=== PATIENT | male | born 1940 | race Caucasian/White ===

== ENCOUNTER 2017-07-26 14:45 | Day surgery (SDC) | payer MEDICARE ==
[~2017-07-26 14:45] MED LIST: ACET325; ACET500 PO; ALBU3IS INH; ALBU90OI6 INH; ASPI325; ASPI81CH PO; ASPI81EC PO; BUDE6HFA INH; Bactrim Ds Tab1 EACH PO; CALCAVITD PO; CALCAVITDA PO; CALCIUM 600 +1 EA11 PO; CHOL10002 PO; CHOLESTEROL MED PO; CIPR500 PO; Cipro500 MG PO; Complete Senio1 EACH PO; ENOX40I SC; EQUATE ALLERGY RELIE PO; FINA5 PO; HYDACE10B PO; HYDCHL12.5 PO; HYDR1TAB94; HYDR1TAB94 PO; HYDROMORPHO IV; Keflex500 MG PO; LEG CRAMPS PO; MULVITMIND PO; Micro-K10 MEQ PO; Norco 5-325 Ta1 EACH PO; POTCHL10ER PO; Prednisone20 MG PO; SIMV40; Simvastatin20 MG PO; TAMS.4ER PO; TORS10 PO; VANCOMYCIN1.5 GM/252 IV; Ventolin Soln3 ML; Zithromax250 MG PO; [UNRECOGNIZED DRUG - OTHER]; [UNRECOGNIZED DRUG - REMARK] PO
[2018-07-07] MEDS ORDERED: CIPR250 PO (09:26)
[2018-07-07] MEDS ORDERED: Gentak3.5 GM TOP (09:26)
[2018-07-07] MEDS ORDERED: CLOB.05TO TOP (11:07)
[2018-07-07] MEDS ORDERED: MUPI1NAS (11:08)
[2018-07-09] MEDS ORDERED: ALBU2.5V5 INH (12:58)
[2018-07-09] MEDS ORDERED: TIOT18 INH (12:58)
[2018-07-09] MEDS ORDERED: CEPH500 PO (12:59)
[2018-07-09] MEDS ORDERED: BUDE6HFA INH (12:59)
[2018-07-09] MEDS ORDERED: CIPR500 PO (13:00)
[2018-07-09] MEDS ORDERED: Clotrimazole15 GM TOP (13:01)
== END 2017-07-26 23:33 | disposition home or self-care (01) ==
LOC: WOUND 14:45
PROC: 2W1QX6Z Compression of Right Lower Leg using Pressure Dressing (ICD-10-PCS; principal; 2017-07-26)
DX: Z48.00 Encounter for change or removal of nonsurgical wound dressing (principal); L97.812 Non-pressure chronic ulcer of other part of right lower leg with fat layer exposed; I87.311 Chronic venous hypertension (idiopathic) with ulcer of right lower extremity; I87.2 Venous insufficiency (chronic) (peripheral); M19.90 Unspecified osteoarthritis, unspecified site; J44.9 Chronic obstructive pulmonary disease, unspecified
CPT/HCPCS: G0463

== ENCOUNTER 2017-08-02 00:40 | Day surgery (SDC) | payer MEDICARE ==
[2018-07-07] MEDS ORDERED: Gentak3.5 GM TOP (09:26)
[2018-07-07] MEDS ORDERED: CIPR250 PO (09:26)
[2018-07-07] MEDS ORDERED: CLOB.05TO TOP (11:07)
[2018-07-07] MEDS ORDERED: MUPI1NAS (11:08)
[2018-07-09] MEDS ORDERED: TIOT18 INH (12:58)
[2018-07-09] MEDS ORDERED: ALBU2.5V5 INH (12:58)
[2018-07-09] MEDS ORDERED: CEPH500 PO (12:59)
[2018-07-09] MEDS ORDERED: BUDE6HFA INH (12:59)
[2018-07-09] MEDS ORDERED: CIPR500 PO (13:00)
[2018-07-09] MEDS ORDERED: Clotrimazole15 GM TOP (13:01)
== END 2017-08-02 17:08 | disposition home or self-care (01) ==
LOC: WOUND 00:40
DX: Z48.00 Encounter for change or removal of nonsurgical wound dressing (principal); L97.812 Non-pressure chronic ulcer of other part of right lower leg with fat layer exposed; I87.311 Chronic venous hypertension (idiopathic) with ulcer of right lower extremity; I87.2 Venous insufficiency (chronic) (peripheral); Z96.641 Presence of right artificial hip joint

== ENCOUNTER 2017-08-08 15:00 | Day surgery (SDC) | payer MEDICARE ==
[2018-07-07] MEDS ORDERED: Gentak3.5 GM TOP (09:26)
[2018-07-07] MEDS ORDERED: CIPR250 PO (09:26)
[2018-07-07] MEDS ORDERED: CLOB.05TO TOP (11:07)
[2018-07-07] MEDS ORDERED: MUPI1NAS (11:08)
[2018-07-09] MEDS ORDERED: TIOT18 INH (12:58)
[2018-07-09] MEDS ORDERED: ALBU2.5V5 INH (12:58)
[2018-07-09] MEDS ORDERED: BUDE6HFA INH (12:59)
[2018-07-09] MEDS ORDERED: CEPH500 PO (12:59)
[2018-07-09] MEDS ORDERED: CIPR500 PO (13:00)
[2018-07-09] MEDS ORDERED: Clotrimazole15 GM TOP (13:01)
== END 2017-08-08 16:55 | disposition home or self-care (01) ==
LOC: WOUND 15:00
PROC: 2W1QX6Z Compression of Right Lower Leg using Pressure Dressing (ICD-10-PCS; principal; 2017-08-08)
DX: Z48.00 Encounter for change or removal of nonsurgical wound dressing (principal); L97.812 Non-pressure chronic ulcer of other part of right lower leg with fat layer exposed; I87.311 Chronic venous hypertension (idiopathic) with ulcer of right lower extremity; I87.2 Venous insufficiency (chronic) (peripheral); J44.9 Chronic obstructive pulmonary disease, unspecified
CPT/HCPCS: G0463

== ENCOUNTER 2017-08-16 14:39 | Day surgery (SDC) | payer MEDICARE ==
[2018-07-07] MEDS ORDERED: CIPR250 PO (09:26)
[2018-07-07] MEDS ORDERED: Gentak3.5 GM TOP (09:26)
[2018-07-07] MEDS ORDERED: CLOB.05TO TOP (11:07)
[2018-07-07] MEDS ORDERED: MUPI1NAS (11:08)
[2018-07-09] MEDS ORDERED: ALBU2.5V5 INH (12:58)
[2018-07-09] MEDS ORDERED: TIOT18 INH (12:58)
[2018-07-09] MEDS ORDERED: BUDE6HFA INH (12:59)
[2018-07-09] MEDS ORDERED: CEPH500 PO (12:59)
[2018-07-09] MEDS ORDERED: CIPR500 PO (13:00)
[2018-07-09] MEDS ORDERED: Clotrimazole15 GM TOP (13:01)
== END 2017-08-16 17:17 | disposition home or self-care (01) ==
LOC: WOUND 14:39
PROC: 2W1QX6Z Compression of Right Lower Leg using Pressure Dressing (ICD-10-PCS; principal; 2017-08-16)
DX: I87.311 Chronic venous hypertension (idiopathic) with ulcer of right lower extremity (principal); I87.2 Venous insufficiency (chronic) (peripheral); F03.90 Unspecified dementia, unspecified severity, without behavioral disturbance, psychotic disturbance, mood disturbance, and anxiety

== ENCOUNTER 2017-08-22 14:54 | Day surgery (SDC) | payer MEDICARE ==
[2018-07-07] MEDS ORDERED: CIPR250 PO (09:26)
[2018-07-07] MEDS ORDERED: Gentak3.5 GM TOP (09:26)
[2018-07-07] MEDS ORDERED: CLOB.05TO TOP (11:07)
[2018-07-07] MEDS ORDERED: MUPI1NAS (11:08)
[2018-07-09] MEDS ORDERED: TIOT18 INH (12:58)
[2018-07-09] MEDS ORDERED: ALBU2.5V5 INH (12:58)
[2018-07-09] MEDS ORDERED: CEPH500 PO (12:59)
[2018-07-09] MEDS ORDERED: BUDE6HFA INH (12:59)
[2018-07-09] MEDS ORDERED: CIPR500 PO (13:00)
[2018-07-09] MEDS ORDERED: Clotrimazole15 GM TOP (13:01)
== END 2017-08-22 23:20 | disposition home or self-care (01) ==
LOC: WOUND 14:54
DX: Z48.00 Encounter for change or removal of nonsurgical wound dressing (principal); L97.812 Non-pressure chronic ulcer of other part of right lower leg with fat layer exposed; I87.311 Chronic venous hypertension (idiopathic) with ulcer of right lower extremity; I87.2 Venous insufficiency (chronic) (peripheral); M20.5X1 Other deformities of toe(s) (acquired), right foot

== ENCOUNTER 2017-08-30 00:50 | Day surgery (SDC) | payer MEDICARE ==
[2018-07-07] MEDS ORDERED: Gentak3.5 GM TOP (09:26)
[2018-07-07] MEDS ORDERED: CIPR250 PO (09:26)
[2018-07-07] MEDS ORDERED: CLOB.05TO TOP (11:07)
[2018-07-07] MEDS ORDERED: MUPI1NAS (11:08)
[2018-07-09] MEDS ORDERED: ALBU2.5V5 INH (12:58)
[2018-07-09] MEDS ORDERED: TIOT18 INH (12:58)
[2018-07-09] MEDS ORDERED: BUDE6HFA INH (12:59)
[2018-07-09] MEDS ORDERED: CEPH500 PO (12:59)
[2018-07-09] MEDS ORDERED: CIPR500 PO (13:00)
[2018-07-09] MEDS ORDERED: Clotrimazole15 GM TOP (13:01)
== END 2017-08-30 23:20 | disposition home or self-care (01) ==
LOC: WOUND 00:50
PROC: 0HBKXZZ Excision of Right Lower Leg Skin, External Approach (ICD-10-PCS; principal; 2017-08-30)
DX: Z48.00 Encounter for change or removal of nonsurgical wound dressing (principal); I87.311 Chronic venous hypertension (idiopathic) with ulcer of right lower extremity; I87.2 Venous insufficiency (chronic) (peripheral); L97.212 Non-pressure chronic ulcer of right calf with fat layer exposed; F03.90 Unspecified dementia, unspecified severity, without behavioral disturbance, psychotic disturbance, mood disturbance, and anxiety
CPT/HCPCS: G0463

== ENCOUNTER 2017-09-06 10:00 | Day surgery (SDC) | payer MEDICARE ==
[2018-07-07] MEDS ORDERED: CIPR250 PO (09:26)
[2018-07-07] MEDS ORDERED: Gentak3.5 GM TOP (09:26)
[2018-07-07] MEDS ORDERED: CLOB.05TO TOP (11:07)
[2018-07-07] MEDS ORDERED: MUPI1NAS (11:08)
[2018-07-09] MEDS ORDERED: ALBU2.5V5 INH (12:58)
[2018-07-09] MEDS ORDERED: TIOT18 INH (12:58)
[2018-07-09] MEDS ORDERED: BUDE6HFA INH (12:59)
[2018-07-09] MEDS ORDERED: CEPH500 PO (12:59)
[2018-07-09] MEDS ORDERED: CIPR500 PO (13:00)
[2018-07-09] MEDS ORDERED: Clotrimazole15 GM TOP (13:01)
== END 2017-09-06 10:47 | disposition home or self-care (01) ==
LOC: WOUND 10:00
PROC: 2W1QX6Z Compression of Right Lower Leg using Pressure Dressing (ICD-10-PCS; principal; 2017-09-06)
DX: Z48.00 Encounter for change or removal of nonsurgical wound dressing (principal); L97.812 Non-pressure chronic ulcer of other part of right lower leg with fat layer exposed; I87.311 Chronic venous hypertension (idiopathic) with ulcer of right lower extremity; I87.2 Venous insufficiency (chronic) (peripheral)

== ENCOUNTER 2017-09-13 00:42 | Day surgery (SDC) | payer MEDICARE ==
[~2017-09-13 00:42] MED LIST changes: -CALCIUM 600 +1 EA11 PO; -Complete Senio1 EACH PO; +MULVIT PO
== END 2017-09-13 22:00 | disposition home or self-care (01) ==
LOC: WOUND 00:42
DX: Z48.00 Encounter for change or removal of nonsurgical wound dressing (principal); L97.812 Non-pressure chronic ulcer of other part of right lower leg with fat layer exposed; I87.311 Chronic venous hypertension (idiopathic) with ulcer of right lower extremity; I87.2 Venous insufficiency (chronic) (peripheral); J44.9 Chronic obstructive pulmonary disease, unspecified; F03.90 Unspecified dementia, unspecified severity, without behavioral disturbance, psychotic disturbance, mood disturbance, and anxiety
CPT/HCPCS: G0463

== ENCOUNTER 2017-09-20 00:57 | Day surgery (SDC) | payer MEDICARE ==
[~2017-09-20 00:57] MED LIST changes: +CALCIUM 600 +1 EA11 PO; +Complete Senio1 EACH PO; -MULVIT PO
[2018-07-07] MEDS ORDERED: CIPR250 PO (09:26)
[2018-07-07] MEDS ORDERED: Gentak3.5 GM TOP (09:26)
[2018-07-07] MEDS ORDERED: CLOB.05TO TOP (11:07)
[2018-07-07] MEDS ORDERED: MUPI1NAS (11:08)
[2018-07-09] MEDS ORDERED: ALBU2.5V5 INH (12:58)
[2018-07-09] MEDS ORDERED: TIOT18 INH (12:58)
[2018-07-09] MEDS ORDERED: BUDE6HFA INH (12:59)
[2018-07-09] MEDS ORDERED: CEPH500 PO (12:59)
[2018-07-09] MEDS ORDERED: CIPR500 PO (13:00)
[2018-07-09] MEDS ORDERED: Clotrimazole15 GM TOP (13:01)
== END 2017-09-20 23:19 | disposition home or self-care (01) ==
LOC: WOUND 00:57
PROC: 2W1QX6Z Compression of Right Lower Leg using Pressure Dressing (ICD-10-PCS; principal; 2017-09-20)
DX: Z48.00 Encounter for change or removal of nonsurgical wound dressing (principal); L97.812 Non-pressure chronic ulcer of other part of right lower leg with fat layer exposed; I87.311 Chronic venous hypertension (idiopathic) with ulcer of right lower extremity; I87.2 Venous insufficiency (chronic) (peripheral); J44.9 Chronic obstructive pulmonary disease, unspecified; Z99.81 Dependence on supplemental oxygen; F03.90 Unspecified dementia, unspecified severity, without behavioral disturbance, psychotic disturbance, mood disturbance, and anxiety
CPT/HCPCS: G0463

== ENCOUNTER 2017-09-27 00:13 | Day surgery (SDC) | payer MEDICARE ==
[2018-07-07] MEDS ORDERED: CIPR250 PO (09:26)
[2018-07-07] MEDS ORDERED: Gentak3.5 GM TOP (09:26)
[2018-07-07] MEDS ORDERED: CLOB.05TO TOP (11:07)
[2018-07-07] MEDS ORDERED: MUPI1NAS (11:08)
[2018-07-09] MEDS ORDERED: ALBU2.5V5 INH (12:58)
[2018-07-09] MEDS ORDERED: TIOT18 INH (12:58)
[2018-07-09] MEDS ORDERED: CEPH500 PO (12:59)
[2018-07-09] MEDS ORDERED: BUDE6HFA INH (12:59)
[2018-07-09] MEDS ORDERED: CIPR500 PO (13:00)
[2018-07-09] MEDS ORDERED: Clotrimazole15 GM TOP (13:01)
== END 2017-09-27 22:51 | disposition home or self-care (01) ==
LOC: WOUND 00:13
PROC: 2W1QX6Z Compression of Right Lower Leg using Pressure Dressing (ICD-10-PCS; principal; 2017-09-27)
PROC: 0HBKXZZ Excision of Right Lower Leg Skin, External Approach (ICD-10-PCS; principal; 2017-09-27)
DX: I87.311 Chronic venous hypertension (idiopathic) with ulcer of right lower extremity (principal); L97.812 Non-pressure chronic ulcer of other part of right lower leg with fat layer exposed; I87.2 Venous insufficiency (chronic) (peripheral); J44.9 Chronic obstructive pulmonary disease, unspecified; Z99.81 Dependence on supplemental oxygen
CPT/HCPCS: G0463

== ENCOUNTER 2017-10-11 14:53 | Day surgery (SDC) | payer MEDICARE ==
[2018-07-07] MEDS ORDERED: CIPR250 PO (09:26)
[2018-07-07] MEDS ORDERED: Gentak3.5 GM TOP (09:26)
[2018-07-07] MEDS ORDERED: CLOB.05TO TOP (11:07)
[2018-07-07] MEDS ORDERED: MUPI1NAS (11:08)
[2018-07-09] MEDS ORDERED: TIOT18 INH (12:58)
[2018-07-09] MEDS ORDERED: ALBU2.5V5 INH (12:58)
[2018-07-09] MEDS ORDERED: BUDE6HFA INH (12:59)
[2018-07-09] MEDS ORDERED: CEPH500 PO (12:59)
[2018-07-09] MEDS ORDERED: CIPR500 PO (13:00)
[2018-07-09] MEDS ORDERED: Clotrimazole15 GM TOP (13:01)
== END 2017-10-11 17:03 | disposition home or self-care (01) ==
LOC: WOUND 14:53
PROC: 2W1QX6Z Compression of Right Lower Leg using Pressure Dressing (ICD-10-PCS; principal; 2017-10-11)
PROC: 0HBKXZZ Excision of Right Lower Leg Skin, External Approach (ICD-10-PCS; principal; 2017-10-11)
DX: I87.311 Chronic venous hypertension (idiopathic) with ulcer of right lower extremity (principal); L97.812 Non-pressure chronic ulcer of other part of right lower leg with fat layer exposed; I87.2 Venous insufficiency (chronic) (peripheral); J44.9 Chronic obstructive pulmonary disease, unspecified

== ENCOUNTER 2017-10-18 14:00 | Day surgery (SDC) | payer MEDICARE ==
[2018-07-07] MEDS ORDERED: CIPR250 PO (09:26)
[2018-07-07] MEDS ORDERED: Gentak3.5 GM TOP (09:26)
[2018-07-07] MEDS ORDERED: CLOB.05TO TOP (11:07)
[2018-07-07] MEDS ORDERED: MUPI1NAS (11:08)
[2018-07-09] MEDS ORDERED: ALBU2.5V5 INH (12:58)
[2018-07-09] MEDS ORDERED: TIOT18 INH (12:58)
[2018-07-09] MEDS ORDERED: CEPH500 PO (12:59)
[2018-07-09] MEDS ORDERED: BUDE6HFA INH (12:59)
[2018-07-09] MEDS ORDERED: CIPR500 PO (13:00)
[2018-07-09] MEDS ORDERED: Clotrimazole15 GM TOP (13:01)
== END 2017-10-18 16:00 | disposition home or self-care (01) ==
LOC: WOUND 14:00
PROC: 2W1QX6Z Compression of Right Lower Leg using Pressure Dressing (ICD-10-PCS; principal; 2017-10-18)
DX: Z48.00 Encounter for change or removal of nonsurgical wound dressing (principal); I87.311 Chronic venous hypertension (idiopathic) with ulcer of right lower extremity; L97.212 Non-pressure chronic ulcer of right calf with fat layer exposed; I87.2 Venous insufficiency (chronic) (peripheral); J44.9 Chronic obstructive pulmonary disease, unspecified; M19.90 Unspecified osteoarthritis, unspecified site; F03.90 Unspecified dementia, unspecified severity, without behavioral disturbance, psychotic disturbance, mood disturbance, and anxiety; Z99.81 Dependence on supplemental oxygen
CPT/HCPCS: G0463

== ENCOUNTER 2017-11-01 00:15 | Day surgery (SDC) | payer MEDICARE ==
[~2017-11-01 00:15] MED LIST changes: -CALCIUM 600 +1 EA11 PO; -Complete Senio1 EACH PO; +MULVIT PO
== END 2017-11-01 22:48 | disposition home or self-care (01) ==
LOC: WOUND 00:15
PROC: 2W1QX6Z Compression of Right Lower Leg using Pressure Dressing (ICD-10-PCS; principal; 2017-11-01)
DX: L97.812 Non-pressure chronic ulcer of other part of right lower leg with fat layer exposed (principal); I87.2 Venous insufficiency (chronic) (peripheral); J44.9 Chronic obstructive pulmonary disease, unspecified
CPT/HCPCS: G0463

== ENCOUNTER 2017-11-14 00:17 | Day surgery (SDC) | payer MEDICARE | END 2017-11-14 22:38 | disposition home or self-care (01) | LOC: WOUND 00:17 | PROC: 0HBKXZZ Excision of Right Lower Leg Skin, External Approach (ICD-10-PCS; principal; 2017-11-14) | PROC: 2W1QX6Z Compression of Right Lower Leg using Pressure Dressing (ICD-10-PCS; principal; 2017-11-14) | DX: L97.212 Non-pressure chronic ulcer of right calf with fat layer exposed (principal); L97.812 Non-pressure chronic ulcer of other part of right lower leg with fat layer exposed; I87.311 Chronic venous hypertension (idiopathic) with ulcer of right lower extremity; I87.2 Venous insufficiency (chronic) (peripheral); J45.909 Unspecified asthma, uncomplicated; Z99.81 Dependence on supplemental oxygen ==

== ENCOUNTER 2017-11-22 14:15 | Day surgery (SDC) | payer MEDICARE | END 2017-11-22 16:29 | disposition home or self-care (01) | LOC: WOUND 14:15 | PROC: 0HBKXZZ Excision of Right Lower Leg Skin, External Approach (ICD-10-PCS; principal; 2017-11-22) | DX: L97.812 Non-pressure chronic ulcer of other part of right lower leg with fat layer exposed (principal); I87.2 Venous insufficiency (chronic) (peripheral) ==

== ENCOUNTER 2017-11-28 14:55 | Day surgery (SDC) | payer MEDICARE | END 2017-11-28 23:16 | disposition home or self-care (01) | LOC: WOUND 14:55 | PROC: 0HBKXZZ Excision of Right Lower Leg Skin, External Approach (ICD-10-PCS; principal; 2017-11-28) | PROC: 2W1RX6Z Compression of Left Lower Leg using Pressure Dressing (ICD-10-PCS; principal; 2017-11-28) | DX: L97.812 Non-pressure chronic ulcer of other part of right lower leg with fat layer exposed (principal); I87.2 Venous insufficiency (chronic) (peripheral); J44.9 Chronic obstructive pulmonary disease, unspecified | CPT/HCPCS: G0463 ==

== ENCOUNTER 2017-12-05 00:15 | Day surgery (SDC) | payer MEDICARE | END 2017-12-05 23:00 | disposition home or self-care (01) | LOC: WOUND 00:15 | PROC: 2W1QX6Z Compression of Right Lower Leg using Pressure Dressing (ICD-10-PCS; principal; 2017-12-05) | PROC: 0HBKXZZ Excision of Right Lower Leg Skin, External Approach (ICD-10-PCS; principal; 2017-12-05) | DX: L97.812 Non-pressure chronic ulcer of other part of right lower leg with fat layer exposed (principal); S81.801D Unspecified open wound, right lower leg, subsequent encounter; I87.2 Venous insufficiency (chronic) (peripheral) ==

== ENCOUNTER 2017-12-12 14:59 | Day surgery (SDC) | payer MEDICARE | END 2017-12-12 23:11 | disposition home or self-care (01) | LOC: WOUND 14:59 | DX: L97.812 Non-pressure chronic ulcer of other part of right lower leg with fat layer exposed (principal); S81.801A Unspecified open wound, right lower leg, initial encounter; I87.2 Venous insufficiency (chronic) (peripheral); J44.9 Chronic obstructive pulmonary disease, unspecified; Z99.81 Dependence on supplemental oxygen | CPT/HCPCS: G0463 ==

== ENCOUNTER 2017-12-19 15:03 | Day surgery (SDC) | payer MEDICARE | END 2017-12-19 16:28 | disposition home or self-care (01) | LOC: WOUND 15:03 | PROC: 2W1QX6Z Compression of Right Lower Leg using Pressure Dressing (ICD-10-PCS; principal; 2017-12-19) | DX: L97.812 Non-pressure chronic ulcer of other part of right lower leg with fat layer exposed (principal); S81.801A Unspecified open wound, right lower leg, initial encounter; I87.2 Venous insufficiency (chronic) (peripheral); J44.9 Chronic obstructive pulmonary disease, unspecified; Z99.81 Dependence on supplemental oxygen | CPT/HCPCS: G0463 ==

== ENCOUNTER 2017-12-26 14:59 | Day surgery (SDC) | payer MEDICARE | END 2017-12-26 22:59 | disposition home or self-care (01) | LOC: WOUND 14:59 | PROC: 2W1QX6Z Compression of Right Lower Leg using Pressure Dressing (ICD-10-PCS; principal; 2017-12-26) | DX: L97.218 Non-pressure chronic ulcer of right calf with other specified severity (principal); L97.812 Non-pressure chronic ulcer of other part of right lower leg with fat layer exposed; S81.801A Unspecified open wound, right lower leg, initial encounter | CPT/HCPCS: G0463 ==

== ENCOUNTER 2018-01-09 15:07 | Day surgery (SDC) | payer MEDICARE | END 2018-01-09 16:45 | disposition home or self-care (01) | LOC: WOUND 15:07 | DX: L97.812 Non-pressure chronic ulcer of other part of right lower leg with fat layer exposed (principal); S81.801A Unspecified open wound, right lower leg, initial encounter; I87.311 Chronic venous hypertension (idiopathic) with ulcer of right lower extremity | CPT/HCPCS: G0463 ==

== ENCOUNTER 2018-01-17 15:15 | Day surgery (SDC) | payer MEDICARE | END 2018-01-17 16:36 | disposition home or self-care (01) | LOC: WOUND 15:15 | DX: Z48.00 Encounter for change or removal of nonsurgical wound dressing (principal); L97.812 Non-pressure chronic ulcer of other part of right lower leg with fat layer exposed; S81.801A Unspecified open wound, right lower leg, initial encounter; I87.311 Chronic venous hypertension (idiopathic) with ulcer of right lower extremity; I87.2 Venous insufficiency (chronic) (peripheral) | CPT/HCPCS: G0463 ==

== ENCOUNTER 2018-04-21 04:45 | Observation (INO) | payer MEDICARE ==
[~2018-04-21] VITALS: Ht 167.6 cm; Wt 100.1 kg
[2018-04-21 05:39] LABS: BASOPHILS ABSOLUTE AUTO 0.03 K/mm3 (0.00-0.23); BASOPHILS PERCENT AUTO 1 % (0-2); EOSINOPHILS ABSOLUTE AUTO 0.51 K/mm3 (0.00-0.68); EOSINOPHILS PERCENT AUTO 11 % (0-6); Hematocrit 37.8 % (37.0-53.0); Hemoglobin 11.6 g/dL (13.5-17.5); IMMATURE GRAN ABSOLUTE AUTO 0.02 K/mm3 (0.00-0.10); IMMATURE GRAN PERCENT AUTO 0 % (0-1); LYMPHOCYTES ABSOLUTE AUTO 0.82 K/mm3 (0.84-5.20); LYMPHOCYTES PERCENT AUTO 17 % (21-46); MONOCYTES ABSOLUTE AUTO 0.46 K/mm3 (0.16-1.47); MONOCYTES PERCENT AUTO 10 % (4-13); Mean Corpuscular HGB 27.6 pg (26.0-34.0); Mean Corpuscular HGB Conc 30.7 g/dL (31.5-36.5); Mean Corpuscular Volume 90 fL (80-100); Mean Platelet Volume 10.2 fL (9.1-12.4); NEUTROPHILS ABSOLUTE AUTO 3.02 K/mm3 (1.96-9.15); NEUTROPHILS PERCENT AUTO 62 % (41-73); Platelet Count 203 K/mm3 (150-400); RDW Coefficient Variation 15.3 % (11.7-14.2); RDW Standard Deviation 50.4 fL (35.1-46.3); Red Blood Cell Count 4.21 M/mm3 (4.30-5.90); White Blood Cell Count 4.86 K/mm3 (4.00-11.30)
[2018-04-21 05:58] LABS: Alanine Aminotransfer (ALT/SGP 34 U/L (12-78); Albumin/Globulin Ratio 0.7 (0.8-1.8); Alk Phos 148 U/L (50-136); Anion Gap 6 mmol/L (6-16); Aspartate Aminotrans (AST/SGOT 23 U/L (12-37); Bilirubin, Total 0.4 mg/dL (0.1-1.0); Blood Urea Nitrogen 14 mg/dL (8-24); Bun/Creatinine Ratio 12.2 (12.0-20.0); CO2, Blood 27 mmol/L (21-32); Calcium, Blood 8.3 mg/dL (8.5-10.1); Chloride, Blood 111 mmol/L (98-108); Creatinine, Blood 1.15 mg/dL (0.60-1.20); Globulin, Blood 4.2 g/dL (2.2-4.0); Glomerular Filtration Rate >60 (60-); Glucose, Blood 109 mg/dL (70-99); Potassium, Blood 3.9 mmol/L (3.5-5.5); Sodium, Blood 144 mmol/L (136-145); Total Protein, Blood 7.2 g/dL (6.4-8.2)
[2018-04-21] MEDS ORDERED: TORSE20 PO (15:06)
[2018-04-21] MEDS ORDERED: ASPI325 PO (15:09)
[2018-04-22 04:56] LABS: BASOPHILS ABSOLUTE AUTO 0.01 K/mm3 (0.00-0.23); BASOPHILS PERCENT AUTO 0 % (0-2); EOSINOPHILS PERCENT AUTO 0 % (0-6); Hematocrit 38.4 % (37.0-53.0); Hemoglobin 11.7 g/dL (13.5-17.5); Mean Corpuscular HGB 27.1 pg (26.0-34.0); Mean Corpuscular HGB Conc 30.5 g/dL (31.5-36.5); Mean Corpuscular Volume 89 fL (80-100); Mean Platelet Volume 10.7 fL (9.1-12.4); Platelet Count 218 K/mm3 (150-400); RDW Coefficient Variation 15.3 % (11.7-14.2); RDW Standard Deviation 50.1 fL (35.1-46.3); Red Blood Cell Count 4.32 M/mm3 (4.30-5.90); White Blood Cell Count 6.76 K/mm3 (4.00-11.30)
[2018-04-22 05:03] LABS: IMMATURE GRAN ABSOLUTE AUTO 0.02 K/mm3 (0.00-0.10); IMMATURE GRAN PERCENT AUTO 0 % (0-1); LYMPHOCYTES ABSOLUTE AUTO 0.34 K/mm3 (0.84-5.20); LYMPHOCYTES PERCENT AUTO 5 % (21-46); MONOCYTES ABSOLUTE AUTO 0.03 K/mm3 (0.16-1.47); MONOCYTES PERCENT AUTO 0 % (4-13); NEUTROPHILS ABSOLUTE AUTO 6.36 K/mm3 (1.96-9.15); NEUTROPHILS PERCENT AUTO 94 % (41-73)
[2018-04-22 05:19] LABS: Alanine Aminotransfer (ALT/SGP 35 U/L (12-78); Albumin, Blood 3.1 g/dL (3.4-5.0); Albumin/Globulin Ratio 0.7 (0.8-1.8); Alk Phos 149 U/L (50-136); Anion Gap 10 mmol/L (6-16); Aspartate Aminotrans (AST/SGOT 15 U/L (12-37); Bilirubin, Total 0.4 mg/dL (0.1-1.0); Blood Urea Nitrogen 20 mg/dL (8-24); Bun/Creatinine Ratio 16.1 (12.0-20.0); CO2, Blood 22 mmol/L (21-32); Calcium, Blood 8.4 mg/dL (8.5-10.1); Chloride, Blood 109 mmol/L (98-108); Creatinine, Blood 1.24 mg/dL (0.60-1.20); Globulin, Blood 4.6 g/dL (2.2-4.0); Glomerular Filtration Rate >60 (60-); Glucose, Blood 240 mg/dL (70-99); Potassium, Blood 4.3 mmol/L (3.5-5.5); Sodium, Blood 141 mmol/L (136-145); Total Protein, Blood 7.7 g/dL (6.4-8.2)
[2018-04-22] MEDS ORDERED: DOXY100 PO (10:24)
[2018-04-22] MEDS ORDERED: PRED20 PO (10:28)
== END 2018-04-22 11:16 | disposition home or self-care (01) ==
LOC: DELPENDDIS → ER 04:45 → MEDS 04:46 → ENPENDDIS 04-22 07:58 → MEDS 04-22 11:16
PROVIDERS: Emergency Medicine; Student in an Organized Health Care Education/Training Program
DX: G93.1 Anoxic brain damage, not elsewhere classified (principal); J44.1 Chronic obstructive pulmonary disease with (acute) exacerbation; G47.33 Obstructive sleep apnea (adult) (pediatric); J18.9 Pneumonia, unspecified organism; I83.009 Varicose veins of unspecified lower extremity with ulcer of unspecified site; L97.909 Non-pressure chronic ulcer of unspecified part of unspecified lower leg with unspecified severity; N40.0 Benign prostatic hyperplasia without lower urinary tract symptoms; Z79.82 Long term (current) use of aspirin; Z79.899 Other long term (current) drug therapy; Z87.891 Personal history of nicotine dependence
CPT/HCPCS: 36415; 70450; 71046; 80053; 84145; 85025; 90686; 93005; 93010; 94640; 94760; 96365; 96367; 96375; 99285-25; G0008; G0378; J0456; J0696; J2930; J7050

== ENCOUNTER 2018-07-18 00:16 | Day surgery (SDC) | payer MEDICARE ==
[~2018-07-18 00:16] MED LIST changes: +ALBU2.5V5 INH; +ASPI325 PO; +CALCIUM 600 +1 EA11 PO; +CEPH500 PO; +CIPR250 PO; +CLOB.05TO TOP; +Clotrimazole15 GM TOP; +Complete Senio1 EACH PO; +DOXY100 PO; +Gentak3.5 GM TOP; -MULVIT PO; +MUPI1NAS; +PRED20 PO; +TIOT18 INH; +TORSE20 PO
== END 2018-07-18 22:47 | disposition home or self-care (01) ==
LOC: WOUND 00:16
DX: L03.115 Cellulitis of right lower limb (principal); L97.812 Non-pressure chronic ulcer of other part of right lower leg with fat layer exposed; S91.104D Unspecified open wound of right lesser toe(s) without damage to nail, subsequent encounter; S91.101D Unspecified open wound of right great toe without damage to nail, subsequent encounter; I87.2 Venous insufficiency (chronic) (peripheral); I70.209 Unspecified atherosclerosis of native arteries of extremities, unspecified extremity

== ENCOUNTER 2018-07-25 13:23 | Day surgery (SDC) | payer MEDICARE | END 2018-07-25 23:06 | disposition home or self-care (01) | LOC: WOUND 13:23 | DX: L97.812 Non-pressure chronic ulcer of other part of right lower leg with fat layer exposed (principal); L97.511 Non-pressure chronic ulcer of other part of right foot limited to breakdown of skin; L03.115 Cellulitis of right lower limb; I87.2 Venous insufficiency (chronic) (peripheral); I70.209 Unspecified atherosclerosis of native arteries of extremities, unspecified extremity ==

== ENCOUNTER 2018-08-08 00:14 | Day surgery (SDC) | payer MEDICARE | END 2018-08-08 22:50 | disposition home or self-care (01) | LOC: WOUND 00:14 | DX: L97.812 Non-pressure chronic ulcer of other part of right lower leg with fat layer exposed (principal); L97.512 Non-pressure chronic ulcer of other part of right foot with fat layer exposed; L97.811 Non-pressure chronic ulcer of other part of right lower leg limited to breakdown of skin; L97.511 Non-pressure chronic ulcer of other part of right foot limited to breakdown of skin; I87.2 Venous insufficiency (chronic) (peripheral); I70.209 Unspecified atherosclerosis of native arteries of extremities, unspecified extremity ==

== ENCOUNTER 2018-08-15 00:58 | Day surgery (SDC) | payer MEDICARE | END 2018-08-15 23:56 | disposition home or self-care (01) | LOC: WOUND 00:58 | PROC: 0HBMXZZ Excision of Right Foot Skin, External Approach (ICD-10-PCS; principal; 2018-08-15) | PROC: 0HBKXZZ Excision of Right Lower Leg Skin, External Approach (ICD-10-PCS; principal; 2018-08-15) | DX: L97.212 Non-pressure chronic ulcer of right calf with fat layer exposed (principal); L03.115 Cellulitis of right lower limb; I87.2 Venous insufficiency (chronic) (peripheral) ==

== ENCOUNTER 2018-08-22 13:45 | Day surgery (SDC) | payer MEDICARE | END 2018-08-22 23:05 | disposition home or self-care (01) | LOC: WOUND 13:45 | DX: L97.812 Non-pressure chronic ulcer of other part of right lower leg with fat layer exposed (principal); L97.512 Non-pressure chronic ulcer of other part of right foot with fat layer exposed; L03.115 Cellulitis of right lower limb; I87.2 Venous insufficiency (chronic) (peripheral); I70.209 Unspecified atherosclerosis of native arteries of extremities, unspecified extremity | CPT/HCPCS: 93970 ==

== ENCOUNTER 2018-08-27 08:39 | Emergency (ER) | payer MEDICARE ==
[~2018-08-27] VITALS: Ht 170.2 cm; Wt 104.3 kg
[2018-08-27 09:53] LABS: BASOPHILS ABSOLUTE AUTO 0.04 K/mm3 (0.00-0.23); BASOPHILS PERCENT AUTO 1 % (0-2); EOSINOPHILS ABSOLUTE AUTO 0.32 K/mm3 (0.00-0.68); EOSINOPHILS PERCENT AUTO 6 % (0-6); Hematocrit 38.2 % (37.0-53.0); Hemoglobin 11.7 g/dL (13.5-17.5); IMMATURE GRAN ABSOLUTE AUTO 0.01 K/mm3 (0.00-0.10); IMMATURE GRAN PERCENT AUTO 0 % (0-1); LYMPHOCYTES ABSOLUTE AUTO 0.75 K/mm3 (0.84-5.20); LYMPHOCYTES PERCENT AUTO 13 % (21-46); MONOCYTES ABSOLUTE AUTO 0.58 K/mm3 (0.16-1.47); MONOCYTES PERCENT AUTO 10 % (4-13); Mean Corpuscular HGB 28.1 pg (26.0-34.0); Mean Corpuscular HGB Conc 30.6 g/dL (31.5-36.5); Mean Corpuscular Volume 92 fL (80-100); Mean Platelet Volume 10.8 fL (9.1-12.4); NEUTROPHILS ABSOLUTE AUTO 3.91 K/mm3 (1.96-9.15); NEUTROPHILS PERCENT AUTO 70 % (41-73); Platelet Count 192 K/mm3 (150-400); RDW Standard Deviation 47.7 fL (35.1-46.3); Red Blood Cell Count 4.16 M/mm3 (4.30-5.90); White Blood Cell Count 5.61 K/mm3 (4.00-11.30)
[2018-08-27 10:03] LABS: Anion Gap 5 mmol/L (6-16); Blood Urea Nitrogen 14 mg/dL (8-24); Bun/Creatinine Ratio 12.7 (12.0-20.0); CO2, Blood 27 mmol/L (21-32); Chloride, Blood 110 mmol/L (98-108); Glomerular Filtration Rate >60 (60-); Glucose, Blood 113 mg/dL (70-99); Potassium, Blood 3.8 mmol/L (3.5-5.5); Sodium, Blood 142 mmol/L (136-145)
[2018-08-27] MEDS ORDERED: Cipro500 MG PO (11:39)
[2018-08-27] MEDS ORDERED: ELIQUIS5 MG PO (11:39)
== END 2018-08-27 12:21 | disposition home or self-care (01) ==
LOC: ER 08:39
PROVIDERS: Emergency Medicine
DX: L03.115 Cellulitis of right lower limb (principal); I82.401 Acute embolism and thrombosis of unspecified deep veins of right lower extremity; Z79.899 Other long term (current) drug therapy; I48.91 Unspecified atrial fibrillation; J44.9 Chronic obstructive pulmonary disease, unspecified
CPT/HCPCS: 36415; 80048; 85025; 85651; 86140; 87070; 87075; 87077; 87147; 87186; 87205; 96374; 99283-25; J0744

== ENCOUNTER 2018-08-29 13:45 | Day surgery (SDC) | payer MEDICARE ==
[~2018-08-29 13:45] MED LIST changes: +ELIQUIS5 MG PO
== END 2018-08-29 22:40 | disposition home or self-care (01) ==
LOC: WOUND 13:45
DX: L97.812 Non-pressure chronic ulcer of other part of right lower leg with fat layer exposed (principal); L97.511 Non-pressure chronic ulcer of other part of right foot limited to breakdown of skin; L97.811 Non-pressure chronic ulcer of other part of right lower leg limited to breakdown of skin; I87.2 Venous insufficiency (chronic) (peripheral); I70.209 Unspecified atherosclerosis of native arteries of extremities, unspecified extremity; J44.9 Chronic obstructive pulmonary disease, unspecified; I89.0 Lymphedema, not elsewhere classified; Z99.81 Dependence on supplemental oxygen

== ENCOUNTER 2018-09-05 14:15 | Day surgery (SDC) | payer MEDICARE | END 2018-09-05 22:52 | disposition home or self-care (01) | LOC: WOUND 14:15 | DX: L97.812 Non-pressure chronic ulcer of other part of right lower leg with fat layer exposed (principal); L97.511 Non-pressure chronic ulcer of other part of right foot limited to breakdown of skin; L97.811 Non-pressure chronic ulcer of other part of right lower leg limited to breakdown of skin; I70.209 Unspecified atherosclerosis of native arteries of extremities, unspecified extremity; I87.2 Venous insufficiency (chronic) (peripheral); J44.9 Chronic obstructive pulmonary disease, unspecified; Z99.81 Dependence on supplemental oxygen ==

== ENCOUNTER 2018-09-12 13:57 | Day surgery (SDC) | payer MEDICARE | END 2018-09-12 23:09 | disposition home or self-care (01) | LOC: WOUND 13:57 | DX: L97.812 Non-pressure chronic ulcer of other part of right lower leg with fat layer exposed (principal); L97.511 Non-pressure chronic ulcer of other part of right foot limited to breakdown of skin; L97.811 Non-pressure chronic ulcer of other part of right lower leg limited to breakdown of skin; I87.2 Venous insufficiency (chronic) (peripheral); I70.209 Unspecified atherosclerosis of native arteries of extremities, unspecified extremity ==

== ENCOUNTER 2018-09-19 14:15 | Day surgery (SDC) | payer MEDICARE | END 2018-09-19 23:14 | disposition home or self-care (01) | LOC: WOUND 14:15 | DX: L97.812 Non-pressure chronic ulcer of other part of right lower leg with fat layer exposed (principal); L97.511 Non-pressure chronic ulcer of other part of right foot limited to breakdown of skin; L97.811 Non-pressure chronic ulcer of other part of right lower leg limited to breakdown of skin; I87.2 Venous insufficiency (chronic) (peripheral); I70.209 Unspecified atherosclerosis of native arteries of extremities, unspecified extremity; J44.9 Chronic obstructive pulmonary disease, unspecified ==

== ENCOUNTER 2018-09-23 10:05 | Day surgery (SDC) | payer MEDICARE | END 2018-09-23 22:34 | disposition home or self-care (01) | LOC: WOUND 10:05 | DX: L97.812 Non-pressure chronic ulcer of other part of right lower leg with fat layer exposed (principal); L97.511 Non-pressure chronic ulcer of other part of right foot limited to breakdown of skin; L97.811 Non-pressure chronic ulcer of other part of right lower leg limited to breakdown of skin; I87.2 Venous insufficiency (chronic) (peripheral); I70.209 Unspecified atherosclerosis of native arteries of extremities, unspecified extremity; J44.9 Chronic obstructive pulmonary disease, unspecified | CPT/HCPCS: 87070; 87075; 87077; 87147; 87184; 87186; 87205 ==

== ENCOUNTER 2018-10-01 05:45 | Emergency (ER) | payer MEDICARE ==
[~2018-10-01] VITALS: Ht 170.2 cm; Wt 102.1 kg
[2018-10-01 07:54] LABS: BASOPHILS ABSOLUTE AUTO 0.04 K/mm3 (0.00-0.23); BASOPHILS PERCENT AUTO 1 % (0-2); EOSINOPHILS ABSOLUTE AUTO 0.33 K/mm3 (0.00-0.68); EOSINOPHILS PERCENT AUTO 6 % (0-6); Hemoglobin 11.4 g/dL (13.5-17.5); IMMATURE GRAN ABSOLUTE AUTO 0.01 K/mm3 (0.00-0.10); IMMATURE GRAN PERCENT AUTO 0 % (0-1); LYMPHOCYTES ABSOLUTE AUTO 0.66 K/mm3 (0.84-5.20); LYMPHOCYTES PERCENT AUTO 12 % (21-46); MONOCYTES ABSOLUTE AUTO 0.58 K/mm3 (0.16-1.47); MONOCYTES PERCENT AUTO 10 % (4-13); Mean Corpuscular HGB 27.9 pg (26.0-34.0); Mean Corpuscular HGB Conc 31.7 g/dL (31.5-36.5); Mean Corpuscular Volume 88 fL (80-100); Mean Platelet Volume 10.6 fL (9.1-12.4); NEUTROPHILS ABSOLUTE AUTO 4.14 K/mm3 (1.96-9.15); NEUTROPHILS PERCENT AUTO 72 % (41-73); Platelet Count 227 K/mm3 (150-400); RDW Coefficient Variation 14.3 % (11.7-14.2); RDW Standard Deviation 45.7 fL (35.1-46.3); Red Blood Cell Count 4.09 M/mm3 (4.30-5.90); White Blood Cell Count 5.76 K/mm3 (4.00-11.30)
[2018-10-01 08:09] LABS: Albumin, Blood 2.9 g/dL (3.4-5.0); Albumin/Globulin Ratio 0.7 (0.8-1.8); Bilirubin, Total 0.4 mg/dL (0.1-1.0); Bun/Creatinine Ratio 14.6 (12.0-20.0); C-REACTIVE PROTEIN, EXT RANGE 3.3 mg/dL (0.000-0.300); Calcium, Blood 8.3 mg/dL (8.5-10.1); Creatinine, Blood 1.3 mg/dL (0.60-1.20); Globulin, Blood 4.2 g/dL (2.2-4.0); Potassium, Blood 3.5 mmol/L (3.5-5.5); Total Protein, Blood 7.1 g/dL (6.4-8.2)
[2018-10-01] MEDS ORDERED: Cipro500 MG PO (10:31)
[2018-10-01] MEDS ORDERED: Augmentin 875-1 EACH PO (10:31)
== END 2018-10-01 11:15 | disposition home or self-care (01) ==
LOC: ER 05:45
PROVIDERS: Emergency Medicine
DX: L03.115 Cellulitis of right lower limb (principal); L03.116 Cellulitis of left lower limb; I48.91 Unspecified atrial fibrillation; J44.9 Chronic obstructive pulmonary disease, unspecified; N40.0 Benign prostatic hyperplasia without lower urinary tract symptoms; Z79.899 Other long term (current) drug therapy; Z79.02 Long term (current) use of antithrombotics/antiplatelets
CPT/HCPCS: 73590; 73630; 80053; 85025; 85651; 86140; 96365; 96375; 99283-25; J0744; J2543

== ENCOUNTER 2018-10-06 11:06 | Day surgery (SDC) | payer MEDICARE ==
[~2018-10-06 11:06] MED LIST changes: +Augmentin 875-1 EACH PO
[2018-10-06] MEDS ORDERED: XARELTO2.5 MG PO (22:33)
[2018-10-06] MEDS ORDERED: Tamiflu75 MG PO (23:19)
== END 2018-10-06 22:50 | disposition home or self-care (01) ==
LOC: WOUND 11:06
DX: L97.812 Non-pressure chronic ulcer of other part of right lower leg with fat layer exposed (principal); L97.511 Non-pressure chronic ulcer of other part of right foot limited to breakdown of skin; I87.2 Venous insufficiency (chronic) (peripheral); I70.209 Unspecified atherosclerosis of native arteries of extremities, unspecified extremity

== ENCOUNTER 2018-10-06 17:31 | Emergency (ER) | payer MEDICARE ==
[~2018-10-06] VITALS: Ht 170.2 cm; Wt 102.1 kg
[2018-10-06 18:25] LABS: BASOPHILS ABSOLUTE AUTO 0.03 K/mm3 (0.00-0.23); BASOPHILS PERCENT AUTO 1 % (0-2); EOSINOPHILS ABSOLUTE AUTO 0.17 K/mm3 (0.00-0.68); EOSINOPHILS PERCENT AUTO 3 % (0-6); Hematocrit 38.9 % (37.0-53.0); Hemoglobin 12.1 g/dL (13.5-17.5); IMMATURE GRAN ABSOLUTE AUTO 0.01 K/mm3 (0.00-0.10); IMMATURE GRAN PERCENT AUTO 0 % (0-1); LYMPHOCYTES ABSOLUTE AUTO 0.41 K/mm3 (0.84-5.20); LYMPHOCYTES PERCENT AUTO 7 % (21-46); MONOCYTES ABSOLUTE AUTO 0.47 K/mm3 (0.16-1.47); MONOCYTES PERCENT AUTO 8 % (4-13); Mean Corpuscular HGB 27.8 pg (26.0-34.0); Mean Corpuscular HGB Conc 31.1 g/dL (31.5-36.5); Mean Corpuscular Volume 89 fL (80-100); Mean Platelet Volume 10.4 fL (9.1-12.4); NEUTROPHILS ABSOLUTE AUTO 5.12 K/mm3 (1.96-9.15); NEUTROPHILS PERCENT AUTO 82 % (41-73); Platelet Count 191 K/mm3 (150-400); RDW Coefficient Variation 14.6 % (11.7-14.2); RDW Standard Deviation 47.8 fL (35.1-46.3); Red Blood Cell Count 4.36 M/mm3 (4.30-5.90); White Blood Cell Count 6.21 K/mm3 (4.00-11.30)
[2018-10-06 18:33] LABS: Albumin, Blood 3.2 g/dL (3.4-5.0); Albumin/Globulin Ratio 0.6 (0.8-1.8); Bilirubin, Total 0.5 mg/dL (0.1-1.0); Bun/Creatinine Ratio 11.8 (12.0-20.0); Calcium, Blood 8.5 mg/dL (8.5-10.1); Creatinine, Blood 1.52 mg/dL (0.60-1.20); Globulin, Blood 5.1 g/dL (2.2-4.0); Potassium, Blood 3.6 mmol/L (3.5-5.5); Total Protein, Blood 8.3 g/dL (6.4-8.2)
[2018-10-06 19:21] LABS: Influenza A Positive (NEGATIVE); Influenza B Negative (NEGATIVE)
[2018-10-06] MEDS ORDERED: XARELTO2.5 MG PO (22:33)
[2018-10-06] MEDS ORDERED: Tamiflu75 MG PO (23:19)
== END 2018-10-06 23:47 | disposition home or self-care (01) ==
LOC: ER 17:31
PROVIDERS: Physician Assistant
DX: J11.1 Influenza due to unidentified influenza virus with other respiratory manifestations (principal); Z79.899 Other long term (current) drug therapy; I48.91 Unspecified atrial fibrillation; J44.9 Chronic obstructive pulmonary disease, unspecified; Z87.891 Personal history of nicotine dependence
CPT/HCPCS: 36415; 71046; 80053; 85025; 87804; 94640; 99285-25

== ENCOUNTER 2018-10-10 00:50 | Day surgery (SDC) | payer MEDICARE ==
[~2018-10-10 00:50] MED LIST changes: +Tamiflu75 MG PO; +XARELTO2.5 MG PO
== END 2018-10-10 12:00 | disposition home or self-care (01) ==
LOC: WOUND 00:50
DX: L03.115 Cellulitis of right lower limb (principal); L97.512 Non-pressure chronic ulcer of other part of right foot with fat layer exposed; I70.209 Unspecified atherosclerosis of native arteries of extremities, unspecified extremity; I87.2 Venous insufficiency (chronic) (peripheral); J44.9 Chronic obstructive pulmonary disease, unspecified; D64.9 Anemia, unspecified; M19.90 Unspecified osteoarthritis, unspecified site; Z86.718 Personal history of other venous thrombosis and embolism; Z99.81 Dependence on supplemental oxygen; Z79.02 Long term (current) use of antithrombotics/antiplatelets
CPT/HCPCS: G0463

== ENCOUNTER 2018-10-14 00:11 | Day surgery (SDC) | payer MEDICARE | END 2018-10-14 22:50 | disposition home or self-care (01) | LOC: WOUND 00:11 | DX: L97.812 Non-pressure chronic ulcer of other part of right lower leg with fat layer exposed (principal); L97.512 Non-pressure chronic ulcer of other part of right foot with fat layer exposed; I87.2 Venous insufficiency (chronic) (peripheral); I70.209 Unspecified atherosclerosis of native arteries of extremities, unspecified extremity; D64.9 Anemia, unspecified; I89.0 Lymphedema, not elsewhere classified; J45.909 Unspecified asthma, uncomplicated; M19.90 Unspecified osteoarthritis, unspecified site; M34.9 Systemic sclerosis, unspecified | CPT/HCPCS: G0463 ==

== ENCOUNTER 2018-10-21 08:50 | Day surgery (SDC) | payer MEDICARE | END 2018-10-21 22:36 | disposition home or self-care (01) | LOC: WOUND 08:50 | DX: L97.512 Non-pressure chronic ulcer of other part of right foot with fat layer exposed (principal); L97.812 Non-pressure chronic ulcer of other part of right lower leg with fat layer exposed; L97.528 Non-pressure chronic ulcer of other part of left foot with other specified severity; I70.209 Unspecified atherosclerosis of native arteries of extremities, unspecified extremity; J44.9 Chronic obstructive pulmonary disease, unspecified; D64.9 Anemia, unspecified; Z99.81 Dependence on supplemental oxygen | CPT/HCPCS: G0463 ==

== ENCOUNTER 2018-10-28 01:03 | Day surgery (SDC) | payer MEDICARE | END 2018-10-28 23:17 | disposition home or self-care (01) | LOC: WOUND 01:03 | DX: I87.2 Venous insufficiency (chronic) (peripheral) (principal); L97.812 Non-pressure chronic ulcer of other part of right lower leg with fat layer exposed; L97.529 Non-pressure chronic ulcer of other part of left foot with unspecified severity; L97.512 Non-pressure chronic ulcer of other part of right foot with fat layer exposed; I70.209 Unspecified atherosclerosis of native arteries of extremities, unspecified extremity; D64.9 Anemia, unspecified; J44.9 Chronic obstructive pulmonary disease, unspecified; M19.90 Unspecified osteoarthritis, unspecified site ==

== ENCOUNTER 2018-11-04 00:23 | Day surgery (SDC) | payer MEDICARE | END 2018-11-04 22:48 | disposition home or self-care (01) | LOC: WOUND 00:23 | DX: I87.2 Venous insufficiency (chronic) (peripheral) (principal); L97.812 Non-pressure chronic ulcer of other part of right lower leg with fat layer exposed; L97.512 Non-pressure chronic ulcer of other part of right foot with fat layer exposed; I89.0 Lymphedema, not elsewhere classified; J44.9 Chronic obstructive pulmonary disease, unspecified; M19.90 Unspecified osteoarthritis, unspecified site ==

== ENCOUNTER 2018-11-11 08:45 | Day surgery (SDC) | payer MEDICARE | END 2018-11-11 22:49 | disposition home or self-care (01) | LOC: WOUND 08:45 | DX: I87.2 Venous insufficiency (chronic) (peripheral) (principal); L97.512 Non-pressure chronic ulcer of other part of right foot with fat layer exposed; L97.812 Non-pressure chronic ulcer of other part of right lower leg with fat layer exposed; L97.529 Non-pressure chronic ulcer of other part of left foot with unspecified severity; L89.890 Pressure ulcer of other site, unstageable; I89.0 Lymphedema, not elsewhere classified; J44.9 Chronic obstructive pulmonary disease, unspecified; I73.9 Peripheral vascular disease, unspecified; M19.90 Unspecified osteoarthritis, unspecified site; M34.9 Systemic sclerosis, unspecified; I73.00 Raynaud's syndrome without gangrene ==

== ENCOUNTER 2018-11-18 08:56 | Day surgery (SDC) | payer MEDICARE | END 2018-11-18 22:39 | disposition home or self-care (01) | LOC: WOUND 08:56 | DX: I87.2 Venous insufficiency (chronic) (peripheral) (principal); L97.812 Non-pressure chronic ulcer of other part of right lower leg with fat layer exposed; L97.512 Non-pressure chronic ulcer of other part of right foot with fat layer exposed; L97.529 Non-pressure chronic ulcer of other part of left foot with unspecified severity; I70.209 Unspecified atherosclerosis of native arteries of extremities, unspecified extremity; J44.9 Chronic obstructive pulmonary disease, unspecified; M19.90 Unspecified osteoarthritis, unspecified site; I89.0 Lymphedema, not elsewhere classified | CPT/HCPCS: G0463 ==

== ENCOUNTER 2018-11-24 09:02 | Day surgery (SDC) | payer MEDICARE | END 2018-11-24 23:04 | disposition home or self-care (01) | LOC: WOUND 09:02 | DX: L97.812 Non-pressure chronic ulcer of other part of right lower leg with fat layer exposed (principal); L97.512 Non-pressure chronic ulcer of other part of right foot with fat layer exposed; I87.2 Venous insufficiency (chronic) (peripheral); I70.209 Unspecified atherosclerosis of native arteries of extremities, unspecified extremity; L89.890 Pressure ulcer of other site, unstageable; J44.9 Chronic obstructive pulmonary disease, unspecified; I89.0 Lymphedema, not elsewhere classified; M19.90 Unspecified osteoarthritis, unspecified site ==

== ENCOUNTER 2018-12-01 08:46 | Day surgery (SDC) | payer MEDICARE | END 2018-12-01 22:43 | disposition home or self-care (01) | LOC: WOUND 08:46 | DX: L97.812 Non-pressure chronic ulcer of other part of right lower leg with fat layer exposed (principal); L97.512 Non-pressure chronic ulcer of other part of right foot with fat layer exposed; I87.2 Venous insufficiency (chronic) (peripheral); I70.209 Unspecified atherosclerosis of native arteries of extremities, unspecified extremity; I89.0 Lymphedema, not elsewhere classified; J44.9 Chronic obstructive pulmonary disease, unspecified; M19.90 Unspecified osteoarthritis, unspecified site ==

== ENCOUNTER → 2018-12-01 | Outpatient (CLI) | payer MEDICARE ==
[2018-12-01 11:55] LABS: Bilirubin, Urine Neg (Neg); Blood, Urine Neg (Neg); Glucose Qualitative, Urine Neg (Neg); Ketones, Urine Neg (Neg); Leukocyte Esterase, Urine Neg (Neg); Nitrite, Urine Neg (Neg); Protein, Urine Neg (Neg); Specific Gravity, Urine 1.015 (1.003-1.022); Urobilinogen, Urine NORM (Normal); pH, Urine 6.5 (5.0-8.0)
[2018-12-01 11:57] LABS: Appearance, Urine Clear (Clear); Color, Urine Yellow (P-Yellow)
== END | disposition home or self-care (01) ==
LOC: LAB 10:55 → LAB SHORT 10:55
PROVIDERS: Nurse Practitioner Family
DX: R30.0 Dysuria (principal)
CPT/HCPCS: 81003

== ENCOUNTER 2018-12-15 07:35 | Day surgery (SDC) | payer MEDICARE | END 2018-12-15 22:38 | disposition home or self-care (01) | LOC: WOUND 07:35 | DX: L03.115 Cellulitis of right lower limb (principal); L97.512 Non-pressure chronic ulcer of other part of right foot with fat layer exposed; L97.812 Non-pressure chronic ulcer of other part of right lower leg with fat layer exposed; I87.2 Venous insufficiency (chronic) (peripheral); I70.209 Unspecified atherosclerosis of native arteries of extremities, unspecified extremity; J44.9 Chronic obstructive pulmonary disease, unspecified; D64.9 Anemia, unspecified | CPT/HCPCS: G0463 ==

== ENCOUNTER 2018-12-24 13:48 | Day surgery (SDC) | payer MEDICARE | END 2018-12-24 22:52 | disposition home or self-care (01) | LOC: WOUND 13:48 | DX: E11.621 Type 2 diabetes mellitus with foot ulcer (principal); E11.51 Type 2 diabetes mellitus with diabetic peripheral angiopathy without gangrene; I70.235 Atherosclerosis of native arteries of right leg with ulceration of other part of foot; L97.412 Non-pressure chronic ulcer of right heel and midfoot with fat layer exposed; L97.512 Non-pressure chronic ulcer of other part of right foot with fat layer exposed; I70.238 Atherosclerosis of native arteries of right leg with ulceration of other part of lower leg; L97.812 Non-pressure chronic ulcer of other part of right lower leg with fat layer exposed; I87.2 Venous insufficiency (chronic) (peripheral); E11.622 Type 2 diabetes mellitus with other skin ulcer | CPT/HCPCS: G0463 ==

== ENCOUNTER 2019-01-01 14:20 | Day surgery (SDC) | payer MEDICARE | END 2019-01-01 22:41 | disposition home or self-care (01) | LOC: WOUND 14:20 | DX: L97.511 Non-pressure chronic ulcer of other part of right foot limited to breakdown of skin (principal); L97.812 Non-pressure chronic ulcer of other part of right lower leg with fat layer exposed; I70.209 Unspecified atherosclerosis of native arteries of extremities, unspecified extremity; J44.9 Chronic obstructive pulmonary disease, unspecified; I87.2 Venous insufficiency (chronic) (peripheral); Z99.81 Dependence on supplemental oxygen; D64.9 Anemia, unspecified | CPT/HCPCS: 88305 ==

== ENCOUNTER 2019-01-08 14:19 | Day surgery (SDC) | payer MEDICARE | END 2019-01-08 23:22 | disposition home or self-care (01) | LOC: WOUND 14:19 | DX: L97.812 Non-pressure chronic ulcer of other part of right lower leg with fat layer exposed (principal); L97.512 Non-pressure chronic ulcer of other part of right foot with fat layer exposed; I87.2 Venous insufficiency (chronic) (peripheral); I70.209 Unspecified atherosclerosis of native arteries of extremities, unspecified extremity; J44.9 Chronic obstructive pulmonary disease, unspecified; M19.90 Unspecified osteoarthritis, unspecified site | CPT/HCPCS: G0463 ==

== ENCOUNTER 2019-01-15 14:15 | Day surgery (SDC) | payer MEDICARE | END 2019-01-15 22:44 | disposition home or self-care (01) | LOC: WOUND 14:15 | DX: L97.512 Non-pressure chronic ulcer of other part of right foot with fat layer exposed (principal); L97.812 Non-pressure chronic ulcer of other part of right lower leg with fat layer exposed; L97.819 Non-pressure chronic ulcer of other part of right lower leg with unspecified severity; I87.2 Venous insufficiency (chronic) (peripheral); I70.209 Unspecified atherosclerosis of native arteries of extremities, unspecified extremity; D64.9 Anemia, unspecified; J44.9 Chronic obstructive pulmonary disease, unspecified | CPT/HCPCS: 87071; 87075; 87205 ==

== ENCOUNTER 2019-01-22 14:11 | Day surgery (SDC) | payer MEDICARE | END 2019-01-22 23:03 | disposition home or self-care (01) | LOC: WOUND 14:11 | DX: L97.211 Non-pressure chronic ulcer of right calf limited to breakdown of skin (principal); L97.511 Non-pressure chronic ulcer of other part of right foot limited to breakdown of skin; I87.2 Venous insufficiency (chronic) (peripheral); I70.209 Unspecified atherosclerosis of native arteries of extremities, unspecified extremity; J44.9 Chronic obstructive pulmonary disease, unspecified; Z99.81 Dependence on supplemental oxygen | CPT/HCPCS: 73610; 73630 ==

== ENCOUNTER 2019-01-27 10:54 | Day surgery (SDC) | payer MEDICARE | END 2019-01-27 23:25 | disposition home or self-care (01) | LOC: WOUND 10:54 | DX: L97.812 Non-pressure chronic ulcer of other part of right lower leg with fat layer exposed (principal); L97.511 Non-pressure chronic ulcer of other part of right foot limited to breakdown of skin; I87.2 Venous insufficiency (chronic) (peripheral); I70.209 Unspecified atherosclerosis of native arteries of extremities, unspecified extremity ==

== ENCOUNTER 2019-02-05 14:21 | Day surgery (SDC) | payer MEDICARE | END 2019-02-05 22:54 | disposition home or self-care (01) | LOC: WOUND 14:21 | PROC: 0JBN0ZZ Excision of Right Lower Leg Subcutaneous Tissue and Fascia, Open Approach (ICD-10-PCS; principal; 2019-02-05) | DX: L97.812 Non-pressure chronic ulcer of other part of right lower leg with fat layer exposed (principal); L97.511 Non-pressure chronic ulcer of other part of right foot limited to breakdown of skin; I87.2 Venous insufficiency (chronic) (peripheral); I70.209 Unspecified atherosclerosis of native arteries of extremities, unspecified extremity; J44.9 Chronic obstructive pulmonary disease, unspecified; Z99.81 Dependence on supplemental oxygen; Z96.641 Presence of right artificial hip joint | CPT/HCPCS: 87071; 87075; 87077; 87186; 87205 ==

== ENCOUNTER 2019-02-12 00:23 | Day surgery (SDC) | payer MEDICARE | END 2019-02-12 22:51 | disposition home or self-care (01) | LOC: WOUND 00:23 | DX: L97.812 Non-pressure chronic ulcer of other part of right lower leg with fat layer exposed (principal); L97.511 Non-pressure chronic ulcer of other part of right foot limited to breakdown of skin; I87.2 Venous insufficiency (chronic) (peripheral); I70.209 Unspecified atherosclerosis of native arteries of extremities, unspecified extremity; J44.9 Chronic obstructive pulmonary disease, unspecified; D64.9 Anemia, unspecified; Z99.81 Dependence on supplemental oxygen | CPT/HCPCS: 87070; 87205; G0463 ==

== ENCOUNTER 2019-02-19 00:19 | Day surgery (SDC) | payer MEDICARE | END 2019-02-19 22:49 | disposition home or self-care (01) | LOC: WOUND 00:19 | PROC: 0HDMXZZ Extraction of Right Foot Skin, External Approach (ICD-10-PCS; principal; 2019-02-19) | PROC: 0HDKXZZ Extraction of Right Lower Leg Skin, External Approach (ICD-10-PCS; principal; 2019-02-19) | DX: L97.811 Non-pressure chronic ulcer of other part of right lower leg limited to breakdown of skin (principal); L97.511 Non-pressure chronic ulcer of other part of right foot limited to breakdown of skin; I87.2 Venous insufficiency (chronic) (peripheral); I70.209 Unspecified atherosclerosis of native arteries of extremities, unspecified extremity ==

== ENCOUNTER 2019-03-05 13:50 | Day surgery (SDC) | payer MEDICARE | END 2019-03-05 22:55 | disposition home or self-care (01) | LOC: WOUND 13:50 | DX: L97.812 Non-pressure chronic ulcer of other part of right lower leg with fat layer exposed (principal); L97.511 Non-pressure chronic ulcer of other part of right foot limited to breakdown of skin; L97.811 Non-pressure chronic ulcer of other part of right lower leg limited to breakdown of skin; I87.2 Venous insufficiency (chronic) (peripheral); I70.209 Unspecified atherosclerosis of native arteries of extremities, unspecified extremity; J44.9 Chronic obstructive pulmonary disease, unspecified | CPT/HCPCS: G0463 ==

== ENCOUNTER 2019-03-19 13:35 | Day surgery (SDC) | payer MEDICARE | END 2019-03-19 23:30 | disposition home or self-care (01) | LOC: WOUND 13:35 | DX: L97.812 Non-pressure chronic ulcer of other part of right lower leg with fat layer exposed (principal); L97.511 Non-pressure chronic ulcer of other part of right foot limited to breakdown of skin; I87.2 Venous insufficiency (chronic) (peripheral); I70.209 Unspecified atherosclerosis of native arteries of extremities, unspecified extremity | CPT/HCPCS: 87071; 87075; 87102; 87205 ==

== ENCOUNTER 2019-03-26 00:14 | Day surgery (SDC) | payer MEDICARE | END 2019-03-26 22:41 | disposition home or self-care (01) | LOC: WOUND 00:14 | DX: L97.812 Non-pressure chronic ulcer of other part of right lower leg with fat layer exposed (principal); L97.511 Non-pressure chronic ulcer of other part of right foot limited to breakdown of skin; I87.2 Venous insufficiency (chronic) (peripheral); I70.209 Unspecified atherosclerosis of native arteries of extremities, unspecified extremity | CPT/HCPCS: G0463 ==

== ENCOUNTER 2019-04-02 00:33 | Day surgery (SDC) | payer MEDICARE | END 2019-04-02 23:19 | disposition home or self-care (01) | LOC: WOUND 00:33 | DX: L97.812 Non-pressure chronic ulcer of other part of right lower leg with fat layer exposed (principal); L97.511 Non-pressure chronic ulcer of other part of right foot limited to breakdown of skin; I70.209 Unspecified atherosclerosis of native arteries of extremities, unspecified extremity; I87.2 Venous insufficiency (chronic) (peripheral) | CPT/HCPCS: G0463 ==

== ENCOUNTER 2019-04-15 05:36 | Emergency (ER) | payer MEDICARE ==
[~2019-04-15] VITALS: Ht 170.2 cm; Wt 99.8 kg
[2019-04-15] MEDS ORDERED: Tizanidine HCl2 MG (05:53)
[2019-04-15] MEDS ORDERED: Cipro500 MG PO (06:34)
== END 2019-04-15 06:48 | disposition home or self-care (01) ==
LOC: ER 05:36
DX: I83.018 Varicose veins of right lower extremity with ulcer other part of lower leg (principal); L97.819 Non-pressure chronic ulcer of other part of right lower leg with unspecified severity; I48.91 Unspecified atrial fibrillation; J44.9 Chronic obstructive pulmonary disease, unspecified; N40.0 Benign prostatic hyperplasia without lower urinary tract symptoms; Z79.899 Other long term (current) drug therapy; Z79.51 Long term (current) use of inhaled steroids
CPT/HCPCS: 99282

== ENCOUNTER 2019-04-16 00:43 | Day surgery (SDC) | payer MEDICARE ==
[~2019-04-16 00:43] MED LIST changes: +Tizanidine HCl2 MG
== END 2019-04-16 23:04 | disposition home or self-care (01) ==
LOC: WOUND 00:43
DX: L97.811 Non-pressure chronic ulcer of other part of right lower leg limited to breakdown of skin (principal); L97.511 Non-pressure chronic ulcer of other part of right foot limited to breakdown of skin; I87.2 Venous insufficiency (chronic) (peripheral); I70.209 Unspecified atherosclerosis of native arteries of extremities, unspecified extremity

== ENCOUNTER 2019-04-30 00:42 | Day surgery (SDC) | payer MEDICARE | END 2019-04-30 22:57 | disposition home or self-care (01) | LOC: WOUND 00:42 | DX: L97.811 Non-pressure chronic ulcer of other part of right lower leg limited to breakdown of skin (principal); L97.812 Non-pressure chronic ulcer of other part of right lower leg with fat layer exposed; L97.511 Non-pressure chronic ulcer of other part of right foot limited to breakdown of skin; I87.2 Venous insufficiency (chronic) (peripheral); J44.9 Chronic obstructive pulmonary disease, unspecified ==

== ENCOUNTER 2020-09-30 14:20 | Emergency (ER) | payer MEDICARE, OTHER ==
[~2020-09-30] VITALS: Ht 172.7 cm; Wt 83.5 kg
[~2020-09-30 14:20] MED LIST changes: +DIPH50 PO; +METPRE4DP PO; +PEPCID40 MG PO
[2020-09-30 17:30] LABS: Calcium, Ionized (POC) 1.15 mmol/L (1.10-1.46); Chloride (POC) 101 mmol/L (98-108); Creatinine (POC) 1.8 mg/dL (0.8-1.3); Glucose (ISTAT POC) 131 mg/dL (70-99); Hemoglobin (POC) 10.9 g/dL (13.5-17.5); Potassium (POC) 3.9 mmol/L (3.5-5.5); Sodium (POC) 137 mmol/L (135-148); Total CO2 (POC) 30 mmol/L (21-32)
== END 2020-09-30 19:15 | disposition home or self-care (01) ==
LOC: ER 14:20
PROVIDERS: Emergency Medicine
DX: M79.604 Pain in right leg (principal); M25.551 Pain in right hip; I48.91 Unspecified atrial fibrillation; E78.5 Hyperlipidemia, unspecified; Z88.1 Allergy status to other antibiotic agents; Z79.899 Other long term (current) drug therapy; Z79.51 Long term (current) use of inhaled steroids
CPT/HCPCS: 36415; 72170; 73552; 80047; 85014; 93971; 99284-25

== ENCOUNTER 2020-10-19 17:52 | Emergency (ER) | payer OTHER ==
[~2020-10-19] VITALS: Ht 172.7 cm; Wt 81.7 kg
== END 2020-10-19 20:07 | disposition home or self-care (01) ==
LOC: ER 17:52
DX: S09.90XA Unspecified injury of head, initial encounter (principal); M25.551 Pain in right hip; E78.5 Hyperlipidemia, unspecified; I48.91 Unspecified atrial fibrillation; J44.9 Chronic obstructive pulmonary disease, unspecified; Z79.01 Long term (current) use of anticoagulants; Z79.899 Other long term (current) drug therapy; Z88.1 Allergy status to other antibiotic agents; Z79.52 Long term (current) use of systemic steroids; W19.XXXA Unspecified fall, initial encounter; Y92.512 Supermarket, store or market as the place of occurrence of the external cause
CPT/HCPCS: 70450; 73502; 99284-25

== ENCOUNTER 2020-11-21 04:55 | Emergency (ER) | payer OTHER, MEDICARE ==
[~2020-11-21] VITALS: Ht 170.2 cm; Wt 81.7 kg
[2020-11-21 05:09] LABS: Source, Urine Voided
[2020-11-21 05:21] LABS: Appearance, Urine Turbid (Clear); Bilirubin, Urine Neg (Neg); Blood, Urine 4+ (Neg); Color, Urine Yellow (P-Yellow); Glucose Qualitative, Urine Neg (Neg); Ketones, Urine Neg (Neg); Leukocyte Esterase, Urine 3+ (Neg); Nitrite, Urine Neg (Neg); Protein, Urine 3+ (Neg); Urobilinogen, Urine NORM (Normal)
[2020-11-21] MEDS ORDERED: DONEPEZIL HCL10 MG PO (05:26)
[2020-11-21] MEDS ORDERED: MEMA5TAB PO (05:27)
[2020-11-21] MEDS ORDERED: SERT100 PO (05:27)
[2020-11-21 05:29] LABS: Bacteria Many /hpf; Squamous Epithelial Cells Not Seen /hpf (Few); White Blood Cells, Urine TNTC /hpf (0-5)
[2020-11-21 05:31] LABS: BASOPHILS ABSOLUTE AUTO 0.05 K/mm3 (0.00-0.23); BASOPHILS PERCENT AUTO 1 % (0-2); EOSINOPHILS ABSOLUTE AUTO 0.22 K/mm3 (0.00-0.68); EOSINOPHILS PERCENT AUTO 3 % (0-6); Hematocrit 27.2 % (37.0-53.0); Hemoglobin 8.2 g/dL (13.5-17.5); IMMATURE GRAN ABSOLUTE AUTO 0.03 K/mm3 (0.00-0.10); IMMATURE GRAN PERCENT AUTO 0 % (0-1); LYMPHOCYTES ABSOLUTE AUTO 0.68 K/mm3 (0.84-5.20); LYMPHOCYTES PERCENT AUTO 8 % (21-46); MONOCYTES ABSOLUTE AUTO 0.66 K/mm3 (0.16-1.47); MONOCYTES PERCENT AUTO 8 % (4-13); Mean Corpuscular HGB 24.8 pg (26.0-34.0); Mean Corpuscular HGB Conc 30.1 g/dL (31.5-36.5); Mean Corpuscular Volume 82 fL (80-100); Mean Platelet Volume 10.1 fL (9.1-12.4); NEUTROPHILS ABSOLUTE AUTO 6.85 K/mm3 (1.96-9.15); NEUTROPHILS PERCENT AUTO 81 % (41-73); Platelet Count 355 K/mm3 (150-400); RDW Coefficient Variation 15.7 % (11.7-14.2); RDW Standard Deviation 47.3 fL (35.1-46.3); White Blood Cell Count 8.49 K/mm3 (4.00-11.30)
[2020-11-21] MEDS ORDERED: TRAM50 PO (05:36)
[2020-11-21 05:55] LABS: Albumin, Blood 1.9 g/dL (3.4-5.0); Albumin/Globulin Ratio 0.3 (0.8-1.8); Bilirubin, Total 0.5 mg/dL (0.1-1.0); Calcium, Blood 8.5 mg/dL (8.5-10.1); Creatinine, Blood 1.28 mg/dL (0.60-1.20); Globulin, Blood 6.2 g/dL (2.2-4.0); Total Protein, Blood 8.1 g/dL (6.4-8.2)
[2020-11-21] MEDS ORDERED: CEPH500 PO (08:46)
== END 2020-11-21 08:55 | disposition home or self-care (01) ==
LOC: ER 04:55
PROVIDERS: Emergency Medicine
DX: N39.0 Urinary tract infection, site not specified (principal); M25.551 Pain in right hip; G89.29 Other chronic pain; F03.90 Unspecified dementia, unspecified severity, without behavioral disturbance, psychotic disturbance, mood disturbance, and anxiety; I48.91 Unspecified atrial fibrillation; E78.5 Hyperlipidemia, unspecified; Z91.81 History of falling; W18.30XA Fall on same level, unspecified, initial encounter; Y92.009 Unspecified place in unspecified non-institutional (private) residence as the place of occurrence of the external cause
CPT/HCPCS: 36415; 70450; 73502; 80053; 81001; 85025; 87077; 87086; 87186; 96365; 99284-25; J0696

== ENCOUNTER 2020-12-19 14:12 | Emergency (ER) | payer OTHER, MEDICARE ==
[~2020-12-19] VITALS: Ht 165.1 cm; Wt 85.7 kg
[~2020-12-19 14:12] MED LIST changes: +DONEPEZIL HCL10 MG PO; +MEMA5TAB PO; +SERT100 PO; +TRAM50 PO
[2020-12-19 15:18] LABS: BASOPHILS ABSOLUTE AUTO 0.04 K/mm3 (0.00-0.23); BASOPHILS PERCENT AUTO 1 % (0-2); EOSINOPHILS PERCENT AUTO 3 % (0-6); Hemoglobin 7.4 g/dL (13.5-17.5); IMMATURE GRAN ABSOLUTE AUTO 0.03 K/mm3 (0.00-0.10); IMMATURE GRAN PERCENT AUTO 0 % (0-1); LYMPHOCYTES ABSOLUTE AUTO 0.61 K/mm3 (0.84-5.20); LYMPHOCYTES PERCENT AUTO 8 % (21-46); MONOCYTES ABSOLUTE AUTO 0.52 K/mm3 (0.16-1.47); MONOCYTES PERCENT AUTO 7 % (4-13); Mean Corpuscular HGB 24.3 pg (26.0-34.0); Mean Corpuscular HGB Conc 29.6 g/dL (31.5-36.5); Mean Corpuscular Volume 82 fL (80-100); Mean Platelet Volume 10.6 fL (9.1-12.4); NEUTROPHILS ABSOLUTE AUTO 6.49 K/mm3 (1.96-9.15); NEUTROPHILS PERCENT AUTO 82 % (41-73); Platelet Count 346 K/mm3 (150-400); RDW Standard Deviation 50.9 fL (35.1-46.3); Red Blood Cell Count 3.04 M/mm3 (4.30-5.90); White Blood Cell Count 7.89 K/mm3 (4.00-11.30)
[2020-12-19 15:34] LABS: International Normalized Ratio 1.43; Prothrombin Time Results 15.1 Sec (9.7-11.5)
[2020-12-19 15:38] LABS: Alanine Aminotransfer (ALT/SGP 14 U/L (12-78); Albumin, Blood 1.8 g/dL (3.4-5.0); Albumin/Globulin Ratio 0.3 (0.8-1.8); Alk Phos 150 U/L (50-136); Anion Gap 4 mmol/L (6-16); Aspartate Aminotrans (AST/SGOT 41 U/L (12-37); Bilirubin, Total 0.4 mg/dL (0.1-1.0); Blood Urea Nitrogen 19 mg/dL (8-24); Bun/Creatinine Ratio 16.7 (12.0-20.0); CO2, Blood 30 mmol/L (21-32); Calcium, Blood 8.4 mg/dL (8.5-10.1); Chloride, Blood 101 mmol/L (98-108); Creatinine, Blood 1.14 mg/dL (0.60-1.20); Globulin, Blood 6.3 g/dL (2.2-4.0); Glomerular Filtration Rate >60 (60-); Glucose, Blood 98 mg/dL (70-99); Potassium, Blood 3.9 mmol/L (3.5-5.5); Sodium, Blood 135 mmol/L (136-145); Total Protein, Blood 8.1 g/dL (6.4-8.2)
[2020-12-19 16:37] LABS: Source, Urine Clean Catch
[2020-12-19 16:40] LABS: Bilirubin, Urine Neg (Neg); Blood, Urine Neg (Neg); Glucose Qualitative, Urine Neg (Neg); Ketones, Urine Neg (Neg); Leukocyte Esterase, Urine 3+ (Neg); Nitrite, Urine Neg (Neg); Protein, Urine Neg (Neg); Urobilinogen, Urine NORM (Normal); pH, Urine 6.5 (5.0-8.0)
[2020-12-19 16:54] LABS: Appearance, Urine Hazy (Clear); Color, Urine Yellow (P-Yellow)
[2020-12-19 16:56] LABS: Bacteria Mod /hpf; Red Blood Cells, Urine Not Seen /hpf (0-2); Squamous Epithelial Cells Few /hpf (Few); Transitional Epithelial Cells Rare /hpf (0-Rare)
[2020-12-19] MEDS ORDERED: CEPH500 PO (17:31)
== END 2020-12-19 18:10 | disposition home or self-care (01) ==
LOC: ER 14:12
PROVIDERS: Physician Assistant
DX: M25.551 Pain in right hip (principal); M54.2 Cervicalgia; N39.0 Urinary tract infection, site not specified; D64.9 Anemia, unspecified; E78.5 Hyperlipidemia, unspecified; I48.91 Unspecified atrial fibrillation; J44.9 Chronic obstructive pulmonary disease, unspecified; Z88.1 Allergy status to other antibiotic agents; Z79.01 Long term (current) use of anticoagulants; Z79.899 Other long term (current) drug therapy; W01.0XXA Fall on same level from slipping, tripping and stumbling without subsequent striking against object, initial encounter
CPT/HCPCS: 70450; 71045; 72125; 73502; 80053; 81001; 84484; 85025; 85610; 85730; 86850; 86900; 86901; 87077; 87086; 87186; 93005; 93010; 99284-25; A9270

== ENCOUNTER 2020-12-20 08:41 | Observation (INO) | payer OTHER, MEDICARE ==
[~2020-12-20] VITALS: Ht 172.7 cm; Wt 84.5 kg
[2020-12-20 09:36] LABS: BASOPHILS ABSOLUTE AUTO 0.04 K/mm3 (0.00-0.23); BASOPHILS PERCENT AUTO 1 % (0-2); EOSINOPHILS ABSOLUTE AUTO 0.21 K/mm3 (0.00-0.68); EOSINOPHILS PERCENT AUTO 3 % (0-6); Hematocrit 25.5 % (37.0-53.0); Hemoglobin 7.4 g/dL (13.5-17.5); IMMATURE GRAN ABSOLUTE AUTO 0.03 K/mm3 (0.00-0.10); IMMATURE GRAN PERCENT AUTO 0 % (0-1); LYMPHOCYTES ABSOLUTE AUTO 0.71 K/mm3 (0.84-5.20); LYMPHOCYTES PERCENT AUTO 10 % (21-46); MONOCYTES ABSOLUTE AUTO 0.47 K/mm3 (0.16-1.47); MONOCYTES PERCENT AUTO 6 % (4-13); Mean Corpuscular HGB 24.1 pg (26.0-34.0); Mean Corpuscular Volume 83 fL (80-100); Mean Platelet Volume 9.8 fL (9.1-12.4); NEUTROPHILS ABSOLUTE AUTO 5.99 K/mm3 (1.96-9.15); NEUTROPHILS PERCENT AUTO 81 % (41-73); Platelet Count 307 K/mm3 (150-400); RDW Coefficient Variation 17.1 % (11.7-14.2); RDW Standard Deviation 51.3 fL (35.1-46.3); Red Blood Cell Count 3.07 M/mm3 (4.30-5.90); White Blood Cell Count 7.45 K/mm3 (4.00-11.30)
[2020-12-20 09:55] LABS: Albumin, Blood 1.8 g/dL (3.4-5.0); Albumin/Globulin Ratio 0.3 (0.8-1.8); Bilirubin, Total 0.4 mg/dL (0.1-1.0); Bun/Creatinine Ratio 14.3 (12.0-20.0); Calcium, Blood 8.8 mg/dL (8.5-10.1); Creatinine, Blood 1.33 mg/dL (0.60-1.20); Globulin, Blood 6.3 g/dL (2.2-4.0); Potassium, Blood 3.5 mmol/L (3.5-5.5); Total Protein, Blood 8.1 g/dL (6.4-8.2)
--- NOTE | 2020-12-20 14:21 | NUR ---
1U PRBC COMPLETE AT 1400
[2020-12-20 15:35] LABS: Hematocrit 28.3 % (37.0-53.0); Hemoglobin 8.4 g/dL (13.5-17.5)
--- NOTE | 2020-12-21 00:21 | NUR ---
PT DENIES PAIN AT THIS TIME.
--- NOTE | 2020-12-21 04:38 | NUR ---
VETERINARY EPIDEMIOLOGIST SUMMARY PT A/O X1 TO SELF, VERY [place] WITH GARBLED SPEECH. PT DOES NOT LIKE HAVING ATTENDS CHANGED. PT YELLS AT STAFF AND HITS THE BED SIDE RAILS WHILE BEING CHANGED. PT'S BODY STIFFENS UP AND WILL NOT LET STAFF REPOSITION HIM. REQUIRES 3 STAFF MEMBERS TO CHANGE INCONTIENT ATTENDS. PT HAS HIP PAIN WHILE BEING CHANGED, HOWEVER GOES BACK TO RELAXING AFTER CHANGE. PT DENIED NEEDING PAIN MEDS. PT DOES NOT FOLLOW DIRECTIONS. RIGHT LOWER LEG WOUND MODERATE SANGUNEOUS DRAINAGE. DRESSING HAS BEEN CHANGED ON RIGHT LEG. PT HAS OPEN SCABS OVER BILTERAL FA, PT SEEMS TO BE PICKING AT THEM OFTEN. EDUCATED NOT TO. ABD PAD IN PLACE ON BILAERAL FA AND SECURED WITH STOCKINETTE. USES 4L O2 VIA NC DURING NOC AT BASELINE. DENIES SOB. SR IN THE 70'S PER YOKER MACHINE OPERATOR. CALL LIGHT WITHIN REACH, BED ALARM ON. WILL CONTINUE TO MONITOR.
[2020-12-21 05:19] LABS: BASOPHILS ABSOLUTE AUTO 0.03 K/mm3 (0.00-0.23); BASOPHILS PERCENT AUTO 0 % (0-2); EOSINOPHILS ABSOLUTE AUTO 0.26 K/mm3 (0.00-0.68); EOSINOPHILS PERCENT AUTO 4 % (0-6); Hematocrit 26.3 % (37.0-53.0); Hemoglobin 7.8 g/dL (13.5-17.5); IMMATURE GRAN ABSOLUTE AUTO 0.03 K/mm3 (0.00-0.10); IMMATURE GRAN PERCENT AUTO 0 % (0-1); LYMPHOCYTES ABSOLUTE AUTO 0.58 K/mm3 (0.84-5.20); LYMPHOCYTES PERCENT AUTO 8 % (21-46); MONOCYTES PERCENT AUTO 7 % (4-13); Mean Corpuscular HGB 24.6 pg (26.0-34.0); Mean Corpuscular HGB Conc 29.7 g/dL (31.5-36.5); Mean Corpuscular Volume 83 fL (80-100); Mean Platelet Volume 9.8 fL (9.1-12.4); NEUTROPHILS ABSOLUTE AUTO 6.13 K/mm3 (1.96-9.15); NEUTROPHILS PERCENT AUTO 81 % (41-73); Platelet Count 308 K/mm3 (150-400); RDW Coefficient Variation 16.6 % (11.7-14.2); RDW Standard Deviation 50.4 fL (35.1-46.3); Red Blood Cell Count 3.17 M/mm3 (4.30-5.90); White Blood Cell Count 7.53 K/mm3 (4.00-11.30)
[2020-12-21 05:43] LABS: Alanine Aminotransfer (ALT/SGP 10 U/L (12-78); Albumin, Blood 1.6 g/dL (3.4-5.0); Albumin/Globulin Ratio 0.3 (0.8-1.8); Alk Phos 131 U/L (50-136); Anion Gap 4 mmol/L (6-16); Aspartate Aminotrans (AST/SGOT 11 U/L (12-37); Bilirubin, Total 0.4 mg/dL (0.1-1.0); Blood Urea Nitrogen 15 mg/dL (8-24); Bun/Creatinine Ratio 13.9 (12.0-20.0); CO2, Blood 29 mmol/L (21-32); Calcium, Blood 8.8 mg/dL (8.5-10.1); Chloride, Blood 106 mmol/L (98-108); Creatinine, Blood 1.08 mg/dL (0.60-1.20); Globulin, Blood 5.8 g/dL (2.2-4.0); Glomerular Filtration Rate >60 (60-); Glucose, Blood 97 mg/dL (70-99); Potassium, Blood 3.5 mmol/L (3.5-5.5); Sodium, Blood 139 mmol/L (136-145); Total Protein, Blood 7.4 g/dL (6.4-8.2)
[2020-12-21 16:30] LABS: IMMATURE RETIC FRACTION 15.6 % (2.3-16.0); RETIC HGB EQUIVALENT 24.2 pg (28.20-36.60); RETICULOCYTE ABSOLUTE 0.0472 M/mm3 (0.0200-0.1100); RETICULOCYTE COUNT PERCENT 1.41 % (0.50-2.50)
--- NOTE | 2020-12-21 16:47 | NUR ---
Update 12/21/20: Dr. Ryan advised congregational care pastor KW that the pt. is likely to discharge to SNF with a plan to transfer to memory care when stable enough to leave the SNF. Will discuss further with [facility] admissions tomorrow morning and sent packet. I will also F/U with patient's Yuki.
[2020-12-21 16:52] LABS: Percent Saturation 14.6 % (20.0-50.0)
[2020-12-21 17:12] LABS: Thyroid Stimulating Hormone 2.02 uIU/mL (0.360-4.800)
--- NOTE | 2020-12-21 18:00 | NUR ---
PATIENT A/O TO SELF AND FAMILY ONLY. VSS, ON RA AND 4LO2 WHILE ASLEEP. RLE PAIN, OXYCODONE AND TYENOL GIVEN TO TREAT WITH SOME RELIEF. PT/OT WORKING WITH PATIENT AND RECOMMENDING SNF. DAILY AND PRN DRESSING CHANGE ORDERS FOR WOUND TO RLE. PATIENT STARTED ON UNASYN TO TREAT RLE INFECTION. CONTINENT/ INCONTINENT OF URINE. POOR APPETITE, ENCOURAGING PO INTAKE. FALL PRECAUTIONS IN PLACE PER UNIT PROTOCOL.
--- NOTE | 2020-12-22 02:27 | NUR ---
PT VERY CONFUSED THIS EVENING. REQUIRING FREQUENT REDIRECTION. PT HAS ATTEMPTED TO GET OUT OF BED MULTIPLE TIMES. BECOMES ANGRY WITH STAFF WHEN ATTEMPTING TO KEEP PT IN THE BED. PT ALSO BECOMES ANGRY WITH STAFF WHEN TRYING TO PROVIDE MOST CARE. WITH FIRST ATTEMPTS AT GETTING OUT OF BED THIS RN WAS ABLE TO CALM PT AND CONVINCE PT TO BE COOPERATIVE. WITH LAST ATTEMPT PT WAS NOT REDIRECTABLE AT ALL. BECAME INCREASINGLY ANGRY WITH STAFF, YELLING AT THE STAFF TO GET OUT, HITTING THE SIDE RAILS, PUSHING STAFF, AND THROWING THE URINAL. PT WOULD NOT STOP TRYING TO GET OUT OF BED. 4 STAFF MEMBERS ASSISTED PT BACK UP INTO THE BED AND VICTORINO VEST WAS APPLIED. DR. ELDRIDGE NOTIFIED AND ORDER FOR RESTRAINT OBTAINED. DR. ELDRIDGE ALSO OKAY'D ONE TIME ORDER FOR HALDOL NEEDED. ALLOWING PT TIME TO CALM DOWN. WILL USE HALDOL IF NECESSARY.
--- NOTE | 2020-12-22 04:46 | NUR ---
SHIFT SUMMARY PT BECOMES ANGRY WITH STAFF AND IS VERY DIFFICULT TO REDIRECT AT TIMES. PT DOES NOT WANT STAFF TURNING HIM OR CHANGING HIS BRIEF. PT DID BECOME IMPULSIVE ENOUGH THAT VICTORINO VEST WAS PLACED. SHORTLY AFTER PT UNTIED HIMSELF AND TOOK THE VICTORINO OFF. PT WAS VERY UPSET ABOUT "BEING TIED TO THE BED". HALDOL IV GIVEN PER ORDERS. CHAIN SAW MECHANICSKY COLINDRES IN, PT SEEMED MORE RECEPTIVE WITH MALE STAFF. JENS WAS ABLE TO PLACE NEW BRIEF ON PT AND ASSIST PT WITH URINAL. PT CALMED AT THIS TIME. APPEARS TO HAVE FINALLY FALLEN ASLEEP. VICTORINO VEST REMAINS OFF AT THIS TIME. DRESSING TO RLE CHANGED X 1. MODERATE AMOUNT OF SEROSANGUINOUS DRAINAGE. OIL IMMERSION GAUZE, EXU DRY, AND KERLEX PLACED TO VOIDS AFTER CLEANED WITH WOUND CLEANSER. PT PULLED OUT HIS IV ONCE TONIGHT. NEW IV PLACED TO RFA. SCATTERED ABRASIONS TO BUE'S THAT PT PICKS AT. ATTEMPTED TO PLACE DRESSINGS TO BUE'S BUT PT JUST PICKS THEM OFF. PT ATE GOOD THIS EVENING. DRINKING TWO ENSURES, EATING AN ENTIRE TURKEY SANDWICH AND EATING TWO PUDDINGS. PT MEDICATED PER EMAR FOR PAIN TO RLE. VITAL SIGNS STABLE. O2 SATS LOW TO MID 90'S ON RA. WILL CONTINUE TO MONITOR.
--- NOTE | 2020-12-22 16:46 | NUR ---
SHIFT SUMMARY- PT HAS SLEPT FOR MUCH OF THS SHIFT. HE IS EATING AND DRINKING WELL. HE IS CON/INC. PT WORKED WITH HIM THIS AFTERNOON AND GOT HIM UP TO THE CHAIR. SPOKE TO HIS THIS SHIFT, HER GOAL IS TO OBTAIN IN HOME CARE GIVERS TO HELP WITH HIS CARE WHEN HE COMES IN. HIS BED IS IN THE LOW POSTION AND CALL LIGHT IS WITHIN REACH.
--- NOTE | 2020-12-23 05:50 | NUR ---
SHIFT SUMMARY- PT. A&OX2 WITH INTERMITTENT CONFUSION. UP IN CHAIR PART OF THE NIGHT, ASSISTED INTO BED WITH 2 PERSON AND WALKER. UNSTEADY GAIT, WEAK W/WOUNDS TO RLE. PERFORMED DSG CHANGE THIS AM, PT. TOLERATED WELL. MEDICATED WITH TYLENOL LAST NIGHT PER PT. REQUEST. PT. SLEPT T/O THE NIGHT, NO APPARENT DISTRESS NOTED. VSS. CALL LIGHT WITHIN REACH, SIDE RAILS UPX2, AND BED ALARM ON FOR SAFETY. WILL CONT TO MONITOR.
--- NOTE | 2020-12-23 09:51 | NUR ---
Update 12/21/20: Dr. Ryan advised career technical education teacher KW that the pt. is likely to discharge to SNF with a plan to transfer to memory care when stable enough to leave the SNF. Will discuss further with [facility] admissions tomorrow morning and sent packet. I will also F/U with patient's Yuki. Update 12/22/20: Per chart review with Dr. Ryan, pt. likely to be discharged tomorrow. Discussed discharge planning with patient's Yuki. Plan to D/C to SNF and eventually to home with paver elderly caregiver. [facility], no beds available. PASR and additional paperwork sent to SNF for review.
[2020-12-23 16:10] LABS: A/G RATIO 0.4 (0.7-1.7); ALPHA-1-GLOBULIN 0.5 g/dL (0.0-0.4); ALPHA-2-GLOBULIN 1.1 g/dL (0.4-1.0); BETA GLOBULIN 0.9 g/dL (0.7-1.3); GAMMA GLOBULIN 2.1 g/dL (0.4-1.8); GLOBULIN, TOTAL 4.6 g/dL (2.2-3.9); M-SPIKE Not Observed g/dL (Not Observed); PROTEIN, TOTAL, SERUM 6.6 g/dL (6.0-8.5)
--- NOTE | 2020-12-23 16:28 | NUR ---
SHIFT SUMMARY- PT IS ALERT, COOPERATIVE. HE IS [place]IN[place]. HE IS EATING AND DRINKING WELL. HE SLEPT INTERMITENTLY THROUGHOUT THIS SHIFT. HE WORKED WITH PT AND OT THIS SHIFT AND TOLETATED WELL. HIS WAS HERE THIS AFTERNOON AND WORKED WITH PT AND PHYSICAL THERAPY. HE IS RECIEVING IV ABX. HE WAS UP TO THE CHAIR THIS AFTERNOON. HIS CALL LIGHT IS WITHIN REACH.
--- NOTE | 2020-12-23 17:54 | NUR ---
Update 12/23/20: Per [facility], due to recent restrained vest and other behavioral concerns, they will not be able to accept him as a patient at this time. Will discuss the memory care option again with the patient's . Also reviewed observation status with utilization to determine if that might change due to changes in condition. They will discuss further with physician. Will contact [facility] to determine if bed available
--- NOTE | 2020-12-23 19:23 | NUR ---
ASSUMED CARE RECEIVED REPORT FROM SKY JAY. PT RESTING IN CHAIR COMFORTABLY, IN NAD. NO ACUTE NEEDS ASSESSED AT THIS TIME. CALL LIGHT, POSSESSIONS IN REACH, CHAIR ALARM ON.
--- NOTE | 2020-12-24 06:02 | NUR ---
GENERATION TECHNOLOGIST SUMMARY PT ASLEEP, IN NAD. VS REVIEWED,WNL. HAS BEEN SLEEPING T/O MUCH OF THE NIGHT. DRSG TO RLE REMAINS IN PLACE, CHANGED THIS SHIFT. NO ACUTE CHANGES IN CONDITION TO REPORT OVERNIGHT. NO ACUTE NEEDS ASSESSED AT THIS TIME. CALL LIGHT, POSSESSIONS IN REACH, BED IN LOW POSITION WITH ALARMS ON. WILL CONTINUE TO PROVIDE CARE UNTIL REPORT GIVEN TO DAY RN.
[2020-12-24 17:11] LABS: 25-HYDROXY, VITAMIN D 58 ng/mL (.); 25-HYDROXY, VITAMIN D-2 <1.0 ng/mL (.); 25-HYDROXY, VITAMIN D-3 58 ng/mL (.)
--- NOTE | 2020-12-24 17:56 | NUR ---
NO ACUTE CHANGES. PT DOING WELL. AO WITH CONFUSION. PT DOING WELL AND CONTINUE TO BE A HEAVY TWO PERSONA TRANSFER HE IS HAVING TROUBLE WALKING ON R LEG. PT IS COOPERATIVE AND TRYS TO HELP WELL HE CAN DURING TRANSFERS. PT EATING WELL AND HAS CALL LIGHT WITHIN REACH.NO DISTRESS NOTED AT THIS TIME WILL CONTINUE TO MONITOR.
--- NOTE | 2020-12-24 18:10 | NUR ---
CHANGED R LEG BANDAGE TODAY AND REWRAPPED. PT TOLERATED WELL.
--- NOTE | 2020-12-24 18:50 | NUR ---
ASSUMED CARE RECEIVED REPORT FROM SKY SHINE. PT RESTING IN CHAIR, IN NAD. NO ACUTE NEEDS ASSESSED AT THIS TIME. CALL LIGHT, POSSESSIONS IN REACH, CHAIR ALARM ON.
--- NOTE | 2020-12-25 04:57 | NUR ---
MATERIAL WORKER SUMMARY PT ASLEEP, IN NAD. VS REVIEWED, TEMP SLIGHTLY ELEVATED, OTHER VS WNL. NO ACUTE CHANGES IN CONDITION NOTED, NO ACUTE EVENTS OVERNIGHT. 2 PERSON ASSIST WITH DEB LIFT, TOLERATES WELL. IV ABX CONTINUE. NO ACUTE NEEDS ASSESSED AT THIS TIME. CALL LIGHT, POSSESSIONS IN REACH, BED IN LOW POSITION WITH ALARMS ON. WILL CONTINUE TO PROVIDE CARE AND REPORT OFF TO ONCOMING RN.
--- NOTE | 2020-12-25 16:27 | NUR ---
Pt is a new comfort care pt. He is currently sitting up in the bedside chair sleeping. Resp are even and unlabored. Nursing reports no concerns at this time. Chart reviewed. PC to make comfort care visits.
--- NOTE | 2020-12-25 17:05 | NUR ---
PT HAS BEEN AO WITH CONFUSION. PT IS A VERY HEAVY TWO PERSON FROM BED TO CHAIR. PT HAS BEEN UP IN CHAIR FOR MEALS AND HAS DONE WELL. PT IS INCONTENT CONTENTENT. PT AT THIS TIME IS COMFORTABLE WILL CONTINUE TO MONITOR. BED ALARM IS IN PLACE.
--- NOTE | 2020-12-25 19:00 | NUR ---
ASSUMED CARE RECEIVED REPORT FROM SKY SHINE. PT SITTING IN RECLINER, IN NAD. NO ACUTE NEEDS ASSESSED AT THIS TIME. CALL LIGHT, POSSESSIONS IN REACH, CHAIR ALARM ON.
--- NOTE | 2020-12-26 04:14 | NUR ---
BROOMCORN PRESS FEEDER SUMMARY PT ASLEEP, IN NAD. APPEARS COMFORTABLE. NO ACUTE CHANGES IN CONDITION TO REPORT OVERNIGHT, DRSG C/D/I TO RLE. NO ACUTE NEEDS ASSESSED AT THIS TIME. CALL LIGHT, POSSESSIONS IN REACH, BED IN LOW POSITION WITH ALARMS ON. WILL CONTINUE TO PROVIDE CARE NEEDED UNTIL REPORT GIVEN TO ONCOMING RN.
--- NOTE | 2020-12-26 16:53 | NUR ---
Shift Summary A/O to self, pleasant and cooperative. In recliner chair for most meals. Medicated x 1 per EMAR for R hip/leg pain with good effect. No family in to visit this shift. No acute changes, awaiting discharge possibly tomorrow. WCTM.
--- NOTE | 2020-12-27 04:58 | NUR ---
SHIT SUMMARY ASSUMED CARE OF PT AT 1900. PT IS A/OX2. PT HAS BEEN VERY PLESANT AND COOPERATIVE. PT DENIES PAIN. PT USED THE URINAL DURING THE NIGHT. PT SLEPT T/O THE NIGHT. PT LEG DRESSING IS CLEAN AND INTACT, THERE IS CLEAR DRAINAGE COMING FROM THE WOUND. CALL LIGHT IN REACH, BED IN LOWEST POSITION.
--- NOTE | 2020-12-27 10:17 | NUR ---
Update 12/27/20: Patient's condition has continued to decline. Decision made to discharge home on hospice. Called and discussed care with Harmeet. Requested paperwork faxed to [employer] to get process started. Will fax D/C orders and standard hospice medication form once completed by physician. Spoke with Yuki this morning to follow-up on Leonel's care and discuss hospice. She is requesting hospital bed, air mattress, and silverio lift. [employer] of [employer] notified of her requests and will work to ensure equipment is delivered. Yuki also requested that [facility] to discuss [facility] with additional support at home from care giving services.
--- NOTE | 2020-12-27 11:20 | NUR ---
WOUND CARE Dressings to RLE changed today per order.
--- NOTE | 2020-12-27 16:23 | NUR ---
Shift Summary A/Ox2, no acute changes, awaiting discharge with hospice. Denies pain.
--- NOTE | 2020-12-27 16:56 | NUR ---
pt up in chair plan is discharge tomorrow pt comfortable
--- NOTE | 2020-12-27 18:49 | NUR ---
Spiritual care note: Mr. Kelly was pleasant, talkative, and told me he was "waiting for his to come visit when she gets off work at 4." He smiles easily and enjoyed telling me little jokes. 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 He is very RUBY, so it was unclear hjow much he understood of what I said to him. He does not appear to realize he is nearing end of life. He is looking forward to going home [place]. We had an easy rapport and clearly enjoyed companionship. Prayer provided, although he told me "I'm not really religous." I will remain available.
[2020-12-27 22:06] LABS: ALKALINE PHOSPHATASE, S 139 IU/L (48-121); BONE FRACTION: 20 % (12-68); INTESTINAL FRAC.: 0 % (0-18); LIVER FRACTION: 80 % (13-88)
--- NOTE | 2020-12-28 04:21 | NUR ---
SHIFT SUMMARY PT AWAKE MUCH OF THE NIGHT. FINALLY FALLING ASLEEP AT 0200 BUT AWAKE AGAIN BY 0400. PT PLEASANTLY CONFUSED. PAINFUL WHEN MOVED. MEDICATED X 1 W/ 10 MG ROXANOL AFTER REPOSITIONING. PT CONTINENT/INCONTINENT. PLACED ON BEDPAN X 1. PT HAD A LARGE BM THIS EVENING. NO ACUTE CHANGES THIS EVENING. PT APPEARED COMFORTABLE THROUGHOUT THE NIGHT. WILL CONTINUE TO MONITOR.
--- NOTE | 2020-12-28 05:50 | NUR ---
DRESSING CHANGED TO RLE AND FULL BED CHANGE DONE.
--- NOTE | 2020-12-28 09:12 | NUR ---
Comfort Care Visit Pt resting in bed and denies pain at this time. Offered therapeutic listening and answered questions. Pt appears comfortable with no S/S of distress at this time. Spoke with Primary RN Kacie and discussed case. No concerns reported at this time. Plan for Pt to possibly D/C home today with hospice. Palliative Care will remain available.
--- NOTE | 2020-12-28 09:42 | NUR ---
SUMMARY: Update 12/28/20 0937: Per discussion with Dr. Melvin, pt. ready to discharge home today on hospice. Transportation arranged for 11 am this morning per hospice request. Yuki notified of transportation time and hospice updated. Discharge paperwork will be faxed to [facility] hospice as soon as they are complete. Prescriptions signed. denied any further concerns or questions at this time.
--- NOTE | 2020-12-28 11:21 | NUR ---
DISCHARGE NOTE PT DISCHARGED TO HOME. PT LEFT ROOM VIA WHEELCHAIR AND [facility] AT 1120. REAL ESTATE SITE ANALYST DELIVERED PACKET AT 1115 ALSO STATED THAT NOTIFIED THE SPOUSE OF DISCHARGE. PT'S PHONE IN HIS POCKET, TRANSPORTER NOTIFIED. NO IV IN PLACE, BELONGINGS RETURNED.
[2020-12-28] MEDS ORDERED: ACET500 PO (11:56)
[2020-12-28] MEDS ORDERED: MORP20L PO (11:57)
[2020-12-28] MEDS ORDERED: OXAYDO5 M1 PO (11:58)
== END 2020-12-28 11:21 | disposition hospice, home (50) ==
LOC: ER 08:41 → MEDS 08:42 → ER 12:13 → MEDS 13:11 → ENPENDDIS 12-27 17:51 → MEDS 12-28 11:21
PROVIDERS: Emergency Medicine; ADMIT Internal Medicine
DX: D62 Acute posthemorrhagic anemia (principal); E46 Unspecified protein-calorie malnutrition; I87.2 Venous insufficiency (chronic) (peripheral); L03.115 Cellulitis of right lower limb; N39.0 Urinary tract infection, site not specified; B95.2 Enterococcus as the cause of diseases classified elsewhere; F03.90 Unspecified dementia, unspecified severity, without behavioral disturbance, psychotic disturbance, mood disturbance, and anxiety; J44.9 Chronic obstructive pulmonary disease, unspecified; I10 Essential (primary) hypertension; E78.5 Hyperlipidemia, unspecified; N40.1 Benign prostatic hyperplasia with lower urinary tract symptoms; E88.09 Other disorders of plasma-protein metabolism, not elsewhere classified; G47.33 Obstructive sleep apnea (adult) (pediatric); F17.200 Nicotine dependence, unspecified, uncomplicated; Z88.1 Allergy status to other antibiotic agents; Z66 Do not resuscitate; Z79.01 Long term (current) use of anticoagulants
CPT/HCPCS: 36415; 36430; 70450; 80053; 82306; 82607; 82728; 82746; 83540; 83550; 84075; 84080; 84165; 84443; 85014; 85018; 85025; 85045; 86850; 86900; 86901; 86923; 93005; 93010; 94640; 94760; 96365; 96366; 96376; 97110; 97116; 97162; 97164; 97166; 97530; 97535; 99284-25; A9270; G0378; J0295; J1630; J7030; J7050; P9016